=== PATIENT | female | born 1985 | race Caucasian/White ===

== ENCOUNTER 2018-09-25 12:38 | Emergency (ER) | payer BC, OTHER ==
[~2018-09-25] VITALS: Ht 170.2 cm; Wt 111.1 kg
--- OUTSIDE RECORDS SUMMARY | 2018-09-25 12:46 | XMS REPORT ---
Author Author HINA KAPOOR [facility] Address Unknown Care Team Providers Care Farm Management Teacher Name Role Phone HINA KAPOOR Unavailable PROBLEMS Unknown Problems ALLERGIES Substance Reaction Event Type Date Status Tylenol Unknown Drug Allergy Sep, Active Metformin HCl Unknown Drug Allergy Sep, Active Aspirin Unknown Drug Allergy Sep, Active ENCOUNTERS Encounter Location Date Diagnosis [facility] [id number] [place], [place] [id number] Sep, Dental examination Z01.20 IMMUNIZATIONS No Known Immunizations SOCIAL HISTORY Never Assessed REASON FOR VISIT darryl PLAN OF CARE Activity Details Follow Up prn Reason:Referred to [place]. VITAL SIGNS Blood pressure systolic 123 mmHg 2016-10-10 Blood pressure diastolic 57 mmHg 2016-10-10 MEDICATIONS No Known Medications RESULTS No Results PROCEDURES Procedure Date Ordered Result Body Site LTD ORAL EVALUATION - PROBLEM FOCUS October 10, 2016 INTRAORL-PERIAPICAL 1 FILM [id number] October 10, 2016 INSTRUCTIONS MEDICATIONS ADMINISTERED No Known Medications MEDICAL (GENERAL) HISTORY Type Description Date Medical History asthma Medical History kidney stones Medical History trigeminal neuralgia Surgical History tubal ligation
--- NOTE | 2018-09-25 13:11 | ED Abdominal Pain ---
General Chief Complaint: Abdominal/GI Problems Stated Complaint: SUPRAPUBIC/ABD/BACK PAIN Source of Information: Patient, Family, Other Exam Limitations: No Limitations History of Present Illness Date Seen by Provider: September 25, 2018 Time Seen by Provider: 13:00 Initial Comments The patient presents to ER by private conveyance with her significant other and mother and chief complaint of progressively worsening abdominal pain starting the suprapubic region and radiating up towards her epigastric region for the past 3 days. When the pain gets at its worst she gets nauseated but she has not vomited. She's also had loose green diarrhea for the past 3 days. She has no history of diverticulitis, ulcerative colitis or Crohn's. She's had her tubes tied area and she just got off her period on Sunday, 2 days ago and has seen some blood still in her urine. She has had kidney stones before but she says that all feel anything like this. She has frequent UTIs. No objective fevers but some subjective chills. She has not taken anything for the pain and rates it as a 6 or 7 out of 10 right now. She has a history of cholecystectomy, tubal ligation. No history of appendectomy or colonoscopy. She has a history of acid reflux. She has not taken any antacids. She endorses dysuria. No vaginal discharge Allergies and Home Medications Allergies Coded Allergies: acetaminophen (Verified Allergy, Unknown, 09/25/18) aspirin (Verified Allergy, Unknown, 09/25/18) metformin (Verified Allergy, Unknown, 09/25/18) Patient Home Medication List Home Medication List Reviewed: Yes Review of Systems Review of Systems Constitutional: No chills, No diaphoresis EENTM: No Blurred Vision, No Double Vision Respiratory: Denies Cough, Denies Shortness of Air Cardiovascular: Denies Chest Pain, Denies Edema Gastrointestinal: See HPI; Denies Abdomen Distended; Abdominal Pain; Denies Constipated; Diarrhea, Nausea; Denies Vomiting Genitourinary: Burning; Denies Discharge Musculoskeletal: No back pain, No joint pain Past Iqjqfok-Zuzhdk-Ifqhuk Hx Patient Social History Alcohol Use: Rarely Uses Recreational Drug Use: No Smoking Status: Current Everyday Smoker Type Used: Cigarettes (one half pack per day) Physical Exam Vital Signs Vital Signs - First Documented 09/25/18 12:50 Temp 97.6 Pulse 77 Resp 16 B/P (MAP) 148/91 (110) Pulse Ox 98 O2 Delivery Room Air Capillary Refill : Height/Weight/BMI Height: '" Weight: lbs. oz. kg; BMI Method: General Appearance: WD/WN, no apparent distress HEENT: PERRL/EOMI, normal ENT inspection, pharynx normal (oral mucosa is moist) Neck: full range of motion, normal inspection Respiratory: no respiratory distress, no accessory muscle use Cardiovascular: normal peripheral pulses, regular rate, rhythm, no edema Peripheral Pulses: 2+ Radial Pulses (R), 2+ Radial Pulses (L) Gastrointestinal: normal bowel sounds (active), soft, no organomegaly, rebound (McBurney's point), tenderness (suprapubic and epigastric with mild tenderness over McBurney's point), other (negative for Rovsing sign, psoas sign or other mesenteric signs.) Neurologic/Psychiatric: alert, normal mood/affect, oriented x 3 Skin: normal color, warm/dry Progress/Results/Core Measures Results/Orders Lab Results Laboratory Tests Test 09/25/18 12:49 09/25/18 13:20 Range/Units Urine Color DARK YELLOW Urine Clarity CLEAR Urine pH 5.5 5-9 Urine Specific [place] >=1.030 1.016-1.022 Urine Protein TRACE H NEGATIVE Urine Glucose (UA) NEGATIVE NEGATIVE Urine Ketones NEGATIVE NEGATIVE Urine Nitrite NEGATIVE NEGATIVE Urine Bilirubin NEGATIVE NEGATIVE Urine Urobilinogen 0.2 NORMAL MG/DL Urine Leukocyte Esterase 1+ H NEGATIVE Urine RBC (Auto) 3+ H NEGATIVE Urine RBC 5-10 H /HPF Urine WBC 5-10 H /HPF Urine Squamous Epithelial Cells 5-10 /HPF Urine Crystals NONE /LPF Urine Bacteria FEW H /HPF Urine Casts NONE /LPF Urine Mucus LARGE H /LPF Urine Culture Indicated YES Urine Test NEGATIVE NEGATIVE Urine Opiates Screen NEGATIVE NEGATIVE Urine Oxycodone Screen POSITIVE H NEGATIVE Urine Methadone Screen NEGATIVE NEGATIVE Urine Propoxyphene Screen NEGATIVE NEGATIVE Urine Barbiturates Screen NEGATIVE NEGATIVE Ur Tricyclic Antidepressants Screen NEGATIVE NEGATIVE Urine Phencyclidine Screen NEGATIVE NEGATIVE Urine Amphetamines Screen NEGATIVE NEGATIVE Urine Methamphetamines Screen NEGATIVE NEGATIVE Urine Benzodiazepines Screen NEGATIVE NEGATIVE Urine Cocaine Screen NEGATIVE NEGATIVE Urine Cannabinoids Screen POSITIVE H NEGATIVE White Blood Count 9.7 4.3-11.0 10^3/uL Red Blood Count 4.77 4.35-5.85 10^6/uL Hemoglobin 14.9 11.5-16.0 G/DL Hematocrit 44 35-52 % Mean Corpuscular Volume 92 80-99 FL Mean Corpuscular Hemoglobin 31 25-34 PG Mean Corpuscular Hemoglobin Concent 34 32-36 G/DL Red Cell Distribution Width 12.8 10.0-14.5 % Platelet Count 215 130-400 10^3/uL Mean Platelet Volume 10.9 H 7.4-10.4 FL Neutrophils (%) (Auto) 56 42-75 % Lymphocytes (%) (Auto) 35 12-44 % Monocytes (%) (Auto) 7 0-12 % Eosinophils (%) (Auto) 2 0-10 % Basophils (%) (Auto) 1 0-10 % Neutrophils # (Auto) 5.4 1.8-7.8 X 10^3 Lymphocytes # (Auto) 3.3 1.0-4.0 X 10^3 Monocytes # (Auto) 0.6 0.0-1.0 X 10^3 Eosinophils # (Auto) 0.2 0.0-0.3 10^3/uL Basophils # (Auto) 0.1 0.0-0.1 10^3/uL Sodium Level 142 135-145 MMOL/L Potassium Level 4.1 3.6-5.0 MMOL/L Chloride Level 103 98-107 MMOL/L Carbon Dioxide Level 28 21-32 MMOL/L Anion Gap 11 5-14 MMOL/L Blood Urea Nitrogen 9 7-18 MG/DL Creatinine 0.73 0.60-1.30 MG/DL Estimat Glomerular Filtration Rate > 60 BUN/Creatinine Ratio 12 Glucose Level 91 70-105 MG/DL Calcium Level 8.7 8.5-10.1 MG/DL Corrected Calcium 8.5 8.5-10.1 MG/DL Magnesium Level 1.9 1.8-2.4 MG/DL Total Bilirubin 0.5 0.1-1.0 MG/DL Aspartate Amino Transf (AST/SGOT) 13 5-34 U/L Alanine Aminotransferase (ALT/SGPT) 12 0-55 U/L Alkaline Phosphatase 67 40-136 U/L Total Protein 6.7 6.4-8.2 GM/DL Albumin 4.2 3.2-4.5 GM/DL Lipase 21 8-78 U/L My Orders Orders - DYLAN,JOHN J Ua Culture If Indicated (09/25/18 12:45) Hcg,Qualitative Urine (09/25/18 12:45) Cbc With Automated Diff (09/25/18 13:04) Comprehensive Metabolic Panel (09/25/18 13:04) Drug Screen Stat (Urine) (09/25/18 13:04) Lipase (09/25/18 13:04) Magnesium (09/25/18 13:04) Ed Iv/Invasive Line Start (09/25/18 13:04) Lidocaine 2% Viscous 15 Ml (Xylocaine Vi (09/25/18 13:15) Famotidine Tablet (Pepcid Tablet) (09/25/18 13:05) Antacid Suspension (Mylanta Suspension (09/25/18 13:15) Urine Culture (09/25/18 12:49) Ketorolac Injection (Toradol Injection) (09/25/18 14:15) Ct Abdomen/Pelvis Wo (09/25/18 14:12) Medications Given in ED Current Medications Medications Dose Ordered Sig/Marcia Route Start Time Stop Time Status Last Admin Dose Admin Al Hydrox/Mg Hydrox/Simethicone 30 ml ONCE ONCE PO 09/25/18 13:15 09/25/18 13:16 DC 09/25/18 13:23 30 ML Ketorolac Tromethamine 30 mg ONCE ONCE IVP 09/25/18 14:15 09/25/18 14:16 DC 09/25/18 14:20 30 MG Lidocaine HCl 15 ml ONCE ONCE PO 09/25/18 13:15 09/25/18 13:16 DC 09/25/18 13:23 15 ML Vital Signs/I&O 09/25/18 12:50 Temp 97.6 Pulse 77 Resp 16 B/P (MAP) 148/91 (110) Pulse Ox 98 O2 Delivery Room Air Progress Progress Note #1: Time: 13:10 Progress Note Urinalysis and blood work. Since she's having some epigastric discomfort without try GI cocktail see if it helps tease out what is causing all of her symptoms. UTI, atypical kidney stone presentation, appendicitis, colitis, PID are all potential differential diagnoses. She has declined anything for pain or nausea at this time. Progress Note #2: Time: 14:11 Progress Note Blood work looks fine. Urinalysis demonstrates what could be infection with some red blood cells which could either be from her recent menses or even possibly a kidney stone. We discussed doing a CT of the abdomen pelvis without contrast and she agrees to do this. We will give her some Rocephin and some Toradol for her discomfort. The GI cocktail did nothing for her symptoms. Diagnostic Imaging Diagonstic Imaging: CT (noncontrast) Plain Films/CT/US/NM/MRI: abdomen, pelvis Comments NAME: SONJA LU [facility] REC#: [id number] PT STATUS: REG ER : 1985 PHYSICIAN: JOHN RICHARDSON MD ADMIT DATE: 09/25/18/ER FS Draft Date of Exam:09/25/18 CT ABDOMEN/PELVIS WO PROCEDURE: CT abdomen and pelvis without contrast. TECHNIQUE: Multiple contiguous axial images were obtained through the abdomen and pelvis without the use of intravenous contrast. Auto Exposure Controls were utilized during the CT exam to meet ALARA standards for radiation dose reduction. INDICATION: Suprapubic and bilateral flank pain for two days as well as diarrhea. Patient has prior history of kidney stones. COMPARISON: No prior studies are available for comparison. FINDINGS: The lung bases are clear. The liver is unremarkable. The gallbladder is surgically absent. No biliary duct dilatation is seen. The pancreas and spleen are unremarkable. No adrenal mass is detected. There are bilateral renal calculi identified. There are two calculi identified in the renal pelvis on the right, largest 7 mm in size. A calculus in the lower pole left kidney measures 6 mm in size. No ureteral calculi or hydronephrosis is detected. Aorta is non-aneurysmal. No bladder calculi are detected. Uterus is unremarkable. Small and large bowel loops are unremarkable. There is no obstruction. There is no ascites. Bony structures show significant sclerosis of the sacroiliac joints bilaterally but much greater on the right consistent with sacroiliitis. IMPRESSION: 1. Bilateral nonobstructing renal calculi, largest located in the right renal pelvis. No definite ureteral calculi or hydronephrosis is seen. 2. Bilateral sacroiliitis. Dictated on workstation # [id number] Dict: 09/25/18 1441 Trans: 09/25/18 1454 [facility] [id number] Interpreted by: JOEY RUSSELL MD Electronically signed by: Reviewed: Reviewed by Me Departure Impression Primary Impression: UTI (urinary tract infection) Qualified Codes: N30.01 - Acute cystitis with hematuria Additional Impression: Viral colitis Disposition: HOME, SELF-CARE Condition: Stable Departure-Patient Inst. Decision time for Depature: 15:06 Referrals: JODIE ORTEGA MD (PCP/Family) Primary Care Physician Patient Instructions: Urinary Tract Infections in Adults Add. Discharge Instructions: You can use Pyridium or AZO for the burning pain sensation up to 3 days. It will turn your urine a dark orange color which is expected. You may also use Tylenol 1000 mg every 8 hours in addition to ibuprofen 800 mg every 8 hours. group social worker the Keflex and start it tomorrow morning one capsule twice a day. Drink lots of fluids. Caffeine is okay. If you're pain becomes more severe or you develop fever above 102.5, intractable nausea vomiting or other worrisome symptoms then I would encourage to return to the ER for further evaluation. You may use Imodium 2 tablets first followed by one tablet every 4 hours as necessary to control the loose watery stools. Probiotics one capsule twice a day with or without yogurt with active culture will be helpful also to control your loose stools. All discharge instructions reviewed with patient and/or family. Voiced understanding. Scripts Cephalexin (Cephalexin) 500 Mg Tablet 500 MG PO BID for 7 Days, #14 TAB 0 Refills Prov: JOHN RICHARDSON 09/25/18 JOHN RICHARDSON September 25, 2018 13:11
[2018-09-25] MEDS: LIDOCAINE 2% VISCOUS 15 ML UDC PO ONE (13:23)
[2018-09-25] MEDS: FAMOTIDINE 20 MG (PEPCID) TABLET PO STA (13:23)
[2018-09-25] MEDS: ANTACID SUSP 30 ML UDC (MYLANTA) PO ONE (13:23)
[2018-09-25 13:52] LABS: ALANINE AMINOTRANSFERASE 12 U/L (0-55); ALBUMIN 4.2 GM/DL (3.2-4.5); ALKALINE PHOSPHATASE 67 U/L (40-136); BILIRUBIN,TOTAL 0.5 MG/DL (0.1-1.0); BUN/CREATININE RATIO 12; CALCIUM 8.7 MG/DL (8.5-10.1); CARBON DIOXIDE 28 MMOL/L (21-32); CHLORIDE 103 MMOL/L (98-107); CREATININE SERUM 0.73 MG/DL (0.60-1.30); GFR ESTIMATED > 60; GLUCOSE 91 MG/DL (70-105); LIPASE 21 U/L (8-78); MAGNESIUM 1.9 MG/DL (1.8-2.4); POTASSIUM 4.1 MMOL/L (3.6-5.0); SODIUM 142 MMOL/L (135-145); TOTAL PROTEIN 6.7 GM/DL (6.4-8.2)
[2018-09-25 13:54] LABS: WHITE BLOOD COUNT 9.7 10^3/uL (4.3-11.0)
[2018-09-25 13:55] LABS: BASOPHILS # (AUTO) 0.1 10^3/uL (0.0-0.1); BASOPHILS % (AUTO) 1 % (0-10); EOSINOPHILS # (AUTO) 0.2 10^3/uL (0.0-0.3); EOSINOPHILS % (AUTO) 2 % (0-10); HEMATOCRIT 44 % (35-52); HEMOGLOBIN 14.9 G/DL (11.5-16.0); LYMPHOCYTES # (AUTO) 3.3 X 10^3 (1.0-4.0); LYMPHOCYTES % (AUTO) 35 % (12-44); MEAN CORPUSCULAR HEMOGLOBIN 31 PG (25-34); MEAN CORPUSCULAR HGB CONC 34 G/DL (32-36); MEAN CORPUSCULAR VOLUME 92 FL (80-99); MEAN PLATELET VOLUME 10.9 FL (7.4-10.4); MONOCYTES # (AUTO) 0.6 X 10^3 (0.0-1.0); MONOCYTES % (AUTO) 7 % (0-12); NEUTROPHILS # (AUTO) 5.4 X 10^3 (1.8-7.8); NEUTROPHILS % (AUTO) 56 % (42-75); PLATELET COUNT 215 10^3/uL (130-400); RED CELL DISTRIBUTION WIDTH 12.8 % (10.0-14.5)
[2018-09-25 13:57] LABS: AMPHETAMINE SCREEN, URINE NEGATIVE (NEGATIVE); BARBITURATE SCREEN URINE NEGATIVE (NEGATIVE); BENZODIAZEPINES SCREEN URINE NEGATIVE (NEGATIVE); CANNABINOID SCREEN, URINE POSITIVE (NEGATIVE); COCAINE SCREEN URINE NEGATIVE (NEGATIVE); METHADONE STAT NEGATIVE (NEGATIVE); METHAMPHETAMINE SCREEN URINE S NEGATIVE (NEGATIVE); OPIATE SCREEN URINE NEGATIVE (NEGATIVE); OXYCODONE STAT POSITIVE (NEGATIVE); PROPOXYPHENE STAT NEGATIVE (NEGATIVE); TRICYCLIC ANTIDEPRESSANTS SCRE NEGATIVE (NEGATIVE)
[2018-09-25 14:01] LABS: CLARITY,URINE CLEAR; COLOR,URINE DARK YELLOW
[2018-09-25 14:02] LABS: BACTERIA,URINE FEW /HPF; BILIRUBIN,URINE NEGATIVE (NEGATIVE); GLUCOSE, URINE (UA) NEGATIVE (NEGATIVE); KETONES,URINE NEGATIVE (NEGATIVE); LEUKOCYTE ESTERASE ,URINE 1+ (NEGATIVE); NITRITE,URINE NEGATIVE (NEGATIVE); PH,URINE 5.5 (5-9); PROTEIN,URINE TRACE (NEGATIVE); UROBILINOGEN,URINE 0.2 MG/DL (NORMAL)
[2018-09-25 14:03] LABS: HCG,QUALITATIVE URINE NEGATIVE (NEGATIVE)
[2018-09-25] MEDS: KETOROLAC 30 MG/ML VIAL IVP ONE (14:20)
--- NOTE | 2018-09-25 14:55 | Diagnostic Imaging Report ---
PROCEDURE: CT abdomen and pelvis without contrast. TECHNIQUE: Multiple contiguous axial images were obtained through the abdomen and pelvis without the use of intravenous contrast. Auto Exposure Controls were utilized during the CT exam to meet ALARA standards for radiation dose reduction. INDICATION: Suprapubic and bilateral flank pain for two days as well as diarrhea. Patient has prior history of kidney stones. COMPARISON: No prior studies are available for comparison. FINDINGS: The lung bases are clear. The liver is unremarkable. The gallbladder is surgically absent. No biliary duct dilatation is seen. The pancreas and spleen are unremarkable. No adrenal mass is detected. There are bilateral renal calculi identified. There are two calculi identified in the renal pelvis on the right, largest 7 mm in size. A calculus in the lower pole left kidney measures 6 mm in size. No ureteral calculi or hydronephrosis is detected. Aorta is non-aneurysmal. No bladder calculi are detected. Uterus is unremarkable. Small and large bowel loops are unremarkable. There is no obstruction. There is no ascites. Bony structures show significant sclerosis of the sacroiliac joints bilaterally but much greater on the right consistent with sacroiliitis. IMPRESSION: 1. Bilateral nonobstructing renal calculi, largest located in the right renal pelvis. No definite ureteral calculi or hydronephrosis is seen. 2. Bilateral sacroiliitis. Dictated by: Dictated on workstation # [id number]
[2018-09-25] MEDS ORDERED: CEPH500T PO (15:08)
[2018-09-25] MEDS: cefTRIAXone FOR IV USE 1,000 MG in WATER (STERILE) FOR INJECTION 10 ML IV ONE (15:20)
[2018-09-25 15:26] VITALS: BP 122/70
== END 2018-09-25 15:30 | disposition home or self-care (01) ==
LOC: ER FS 12:42
DX: N39.0 Urinary tract infection, site not specified (principal); A08.4 Viral intestinal infection, unspecified; F17.210 Nicotine dependence, cigarettes, uncomplicated; Z88.6 Allergy status to analgesic agent; Z88.8 Allergy status to other drugs, medicaments and biological substances; Z87.442 Personal history of urinary calculi
CPT/HCPCS: 36415; 74176; 80053; 80306; 81000; 83690; 83735; 84703; 85025; 87088; 96374; 96375

== ENCOUNTER 2018-11-27 13:11 | Emergency (ER) | payer BC ==
[~2018-11-27] VITALS: Ht 170.2 cm; Wt 106.6 kg
[~2018-11-27 13:11] MED LIST: CEPH500T PO
--- OUTSIDE RECORDS SUMMARY | 2018-11-27 13:16 | XMS REPORT | Continuity of Care Document ---
Author Organization Unknown Address Unknown Phone Unavailable Allergies Active Description Code Type Severity Reaction Onset Reported/Identified Relationship to Patient Clinical Status Yes acetaminophen [id number] Drug Allergy Unknown N/A 09/25/2018 Yes aspirin [id number] Drug Allergy Unknown N/A 09/25/2018 Yes metformin [id number] Drug Allergy Unknown N/A 09/25/2018 Medications There is no data. Problems Date Dx Coded Attending Type Code Diagnosis Diagnosed By 09/25/2018 JOHN RICHARDSON MD Ot A08.4 VIRAL INTESTINAL INFECTION, UNSPECIFIED 09/25/2018 JOHN RICHARDSON MD Ot F17.210 NICOTINE DEPENDENCE, CIGARETTES, UNCOMPL 09/25/2018 JOHN RICHARDSON MD Ot N39.0 URINARY TRACT INFECTION, SITE NOT SPECIF 09/25/2018 JOHN RICHARDSON MD Ot R10.30 LOWER ABDOMINAL PAIN, UNSPECIFIED 09/25/2018 JOHN RICHARDSON MD Ot Z87.442 PERSONAL HISTORY OF URINARY CALCULI 09/25/2018 JOHN RICHARDSON MD Ot Z88.6 ALLERGY STATUS TO ANALGESIC AGENT STATUS 09/25/2018 JOHN RICHARDSON MD Ot Z88.8 ALLERGY STATUS TO OTH DRUG/MEDS/BIOL SUB 09/28/2018 JOHN RICHARDSON MD Ot A08.4 VIRAL INTESTINAL INFECTION, UNSPECIFIED 09/28/2018 JOHN RICHARDSON MD Ot F17.210 NICOTINE DEPENDENCE, CIGARETTES, UNCOMPL 09/28/2018 JOHN RICHARDSON MD Ot N39.0 URINARY TRACT INFECTION, SITE NOT SPECIF 09/28/2018 JOHN RICHARDSON MD Ot R10.30 LOWER ABDOMINAL PAIN, UNSPECIFIED 09/28/2018 JOHN RICHARDSON MD Ot Z87.442 PERSONAL HISTORY OF URINARY CALCULI 09/28/2018 JOHN RICHARDSON MD Ot Z88.6 ALLERGY STATUS TO ANALGESIC AGENT STATUS 09/28/2018 JOHN RICHARDSON MD Ot Z88.8 ALLERGY STATUS TO OTH DRUG/MEDS/BIOL SUB Procedures There is no data. Results Test Result Range Urine drug screening test - 09/25/18 12:49 Urine phencyclidine detection by screening method NEGATIVE NEGATIVE Urine benzodiazepines detection by screening method NEGATIVE NEGATIVE Urine cocaine detection NEGATIVE NEGATIVE Urine amphetamines detection by screening method NEGATIVE NEGATIVE Urine methamphetamine detection by screening method NEGATIVE NEGATIVE Urine cannabinoids detection by screening method POSITIVE NEGATIVE Urine opiates detection by screening method NEGATIVE NEGATIVE Urine barbiturates detection NEGATIVE NEGATIVE Screening urine tricyclic antidepressants detection NEGATIVE NEGATIVE Urine methadone detection by screening method NEGATIVE NEGATIVE Urine oxycodone detection POSITIVE NEGATIVE Urine propoxyphene detection NEGATIVE NEGATIVE Complete urinalysis with reflex to culture - 09/25/18 12:49 Urine color determination DARK YELLOW NRG Urine clarity determination CLEAR NRG Urine pH measurement by test strip 5.5 5-9 Specific gravity of urine by test strip >= 1.016-1.022 Urine protein assay by test strip, semi-quantitative TRACE NEGATIVE Urine glucose detection by automated test strip NEGATIVE NEGATIVE Erythrocytes detection in urine sediment by light microscopy 3+ NEGATIVE Urine ketones detection by automated test strip NEGATIVE NEGATIVE Urine nitrite detection by test strip NEGATIVE NEGATIVE Urine total bilirubin detection by test strip NEGATIVE NEGATIVE Urine urobilinogen measurement by automated test strip (mass/volume) 0.2 mg/dL NORMAL Urine leukocyte esterase detection by dipstick 1+ NEGATIVE Automated urine sediment erythrocyte count by microscopy (number/high power field) [HPF] NRG Automated urine sediment leukocyte count by microscopy (number/high power field) [HPF] NRG Bacteria detection in urine sediment by light microscopy FEW NRG Squamous epithelial cells detection in urine sediment by light microscopy 5-10 NRG Crystals detection in urine sediment by light microscopy NONE NRG Casts detection in urine sediment by light microscopy NONE NRG Mucus detection in urine sediment by light microscopy LARGE NRG Complete urinalysis with reflex to culture YES NRG Urine beta human chorionic gonadotropin (hCG) measurement - 09/25/18 12:49 Urine beta human chorionic gonadotropin (hCG) measurement NEGATIVE NEGATIVE Bacterial urine culture - 09/25/18 12:49 Bacterial urine culture [id number] NRG COLONY COUNT . NRG FTX;REPORTABLE PRESENT NRG FREE TEXT ENTRY 2 CONTAMINATION WITH SKIN ANAI NRG FREE TEXT ENTRY 3 NO SUSCEPTIBILITY PERFORMED NRG Comprehensive metabolic panel - 09/25/18 13:20 Serum or plasma sodium measurement (moles/volume) 142 mmol/L 135-145 Serum or plasma potassium measurement (moles/volume) 4.1 mmol/L 3.6-5.0 Serum or plasma chloride measurement (moles/volume) 103 mmol/L 98-107 Carbon dioxide 28 mmol/L 21-32 Serum or plasma anion gap determination (moles/volume) 11 mmol/L 5-14 Serum or plasma urea nitrogen measurement (mass/volume) 9 mg/dL 7-18 Serum or plasma creatinine measurement (mass/volume) 0.73 mg/dL 0.60-1.30 Serum or plasma urea nitrogen/creatinine mass ratio 12 NRG Serum or plasma creatinine measurement with calculation of estimated glomerular filtration rate > NRG Serum or plasma glucose measurement (mass/volume) 91 mg/dL 70-105 Serum or plasma calcium measurement (mass/volume) 8.7 mg/dL 8.5-10.1 Serum or plasma total bilirubin measurement (mass/volume) 0.5 mg/dL 0.1-1.0 Serum or plasma alkaline phosphatase measurement (enzymatic activity/volume) 67 U/L 40-136 Serum or plasma aspartate aminotransferase measurement (enzymatic activity/volume) 13 U/L 5-34 Serum or plasma alanine aminotransferase measurement (enzymatic activity/volume) 12 U/L 0-55 Serum or plasma protein measurement (mass/volume) 6.7 g/dL 6.4-8.2 Serum or plasma albumin measurement (mass/volume) 4.2 g/dL 3.2-4.5 CALCIUM CORRECTED 8.5 mg/dL 8.5-10.1 Magnesium - 09/25/18 13:20 Magnesium 1.9 mg/dL 1.8-2.4 Lipase - 09/25/18 13:20 Lipase 21 U/L 8-78 Complete blood count (CBC) with automated white blood cell (WBC) differential - 09/25/18 13:20 Blood leukocytes automated count (number/volume) 9.7 10*3/uL 4.3-11.0 Blood erythrocytes automated count (number/volume) 4.77 10*6/uL 4.35-5.85 Venous blood hemoglobin measurement (mass/volume) 14.9 g/dL 11.5-16.0 Blood hematocrit (volume fraction) 44 % 35-52 Automated erythrocyte mean corpuscular volume 92 [foz_us] 80-99 Automated erythrocyte mean corpuscular hemoglobin (mass per erythrocyte) 31 pg 25-34 Automated erythrocyte mean corpuscular hemoglobin concentration measurement (mass/volume) 34 g/dL 32-36 Automated erythrocyte distribution width ratio 12.8 % 10.0- 14.5 Automated blood platelet count (count/volume) 215 10*3/uL 130-400 Automated blood platelet mean volume measurement 10.9 [foz_us] 7.4-10.4 Automated blood neutrophils/100 leukocytes 56 % 42-75 Automated blood lymphocytes/100 leukocytes 35 % 12-44 Blood monocytes/100 leukocytes 7 % 0-12 Automated blood eosinophils/100 leukocytes 2 % 0-10 Automated blood basophils/100 leukocytes 1 % 0-10 Blood neutrophils automated count (number/volume) 5.4 10*3 1.8-7.8 Blood lymphocytes automated count (number/volume) 3.3 10*3 1.0-4.0 Blood monocytes automated count (number/volume) 0.6 10*3 0.0- 1.0 Automated eosinophil count 0.2 10*3/uL 0.0-0.3 Automated blood basophil count (count/volume) 0.1 10*3/uL 0.0-0.1 Encounters ACCT No. Visit Date/Time Discharge Status Pt. Type Provider Facility Loc./Unit Complaint [id number] 09/25/2018 12:42:00 09/25/2018 15:30:00 DIS Emergency DYLAN MACHADO, JOHN [facility] ER FS SUPRAPUBIC/ABD/BACK PAIN
[2018-11-27] MEDS ORDERED: KETOROLAC 30 MG/ML VIAL IVP ONE (13:30)
[2018-11-27] MEDS ORDERED: NS IV 1000 ML 1,000 ML IV SCH (13:30)
--- NOTE | 2018-11-27 13:30 | ED GU-Female ---
General Chief Complaint: - Urinary Stated Complaint: HEMATURIA; SUPRAPUBIC & RT FLANK PAIN Source: patient Exam Limitations: no limitations History of Present Illness Date Seen by Provider: Nov 27, 2018 Time Seen by Provider: 13:15 Initial Comments She has a very pleasant 33-year-old female who presents for evaluation of right flank discomfort as well as right lower quadrant abdominal discomfort which started yesterday. She is also noticed some gross hematuria. She reports a history of kidney stones and states that this does feel similar. She also reports a history of endometriosis and states that that has sometimes felt similar to this. She is alert and oriented 4, calm, and appears to be in no distress at this time. She denies fevers or chills, pelvic pain/bleeding/discharge, chest pain or shortness of breath, diarrhea, vomiting, rectal bleeding, dizziness or syncope. She reports a past surgical history including cholecystectomy and tubal ligation. Timing/Duration: yesterday Severity/Quality: moderate Location: RLQ, right flank Radiation: none Activities at Onset: none Prior Genitourinary Problems: similar symptoms (with kidney stones in the past) Modifying Factors: Improves With Movement (makes the pain slightly worse) Associated Symptoms: other (hematuria) Allergies and Home Medications Allergies Coded Allergies: acetaminophen (Verified Allergy, Unknown, 09/25/18) aspirin (Verified Allergy, Unknown, 09/25/18) metformin (Verified Allergy, Unknown, 09/25/18) Home Medications Cephalexin 500 Mg Tablet, 500 MG PO BID Prescribed by: JOHN RICHARDSON on 09/25/18 1508 Patient Home Medication List Home Medication List Reviewed: Yes Review of Systems Review of Systems Constitutional: no symptoms reported EENTM: no symptoms reported Respiratory: no symptoms reported Cardiovascular: no symptoms reported Gastrointestinal: RLQ Genitourinary: flank pain (right) Musculoskeletal: no symptoms reported Skin: no symptoms reported Psychiatric/Neurological: No Symptoms Reported Endocrine: No Symptoms Reported Hematologic/Lymphatic: No Symptoms Reported All Other Systemes Reviewed Negative Unless Noted: Yes Past Wehsdim-Eietai-Ntgyup Hx Patient Social History Alcohol Use: Denies Use Recreational Drug Use: No Smoking Status: Current Everyday Smoker Type Used: Cigarettes 2nd Hand Smoke Exposure: Yes Recent Hopitalizations: No Seasonal Allergies Seasonal Allergies: No Past Medical History Surgeries: Yes Gallbladder, Tubal Ligation Respiratory: Yes Asthma Cardiac: No Neurological: No 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 oz. 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, no motor/sensory deficits, alert, normal mood/affect, oriented x 3 Skin: normal color, warm/dry Lymphatic: no adenopathy Progress/Results/Core Measures Suspected Sepsis SIRS Temperature: Pulse: Respiratory Rate: Laboratory Tests 11/27/18 13:25: White Blood Count 11.1H Blood Pressure / Mean: Laboratory Tests 11/27/18 13:25: Creatinine 0.75, Platelet Count 231, Total Bilirubin 0.5 Results/Orders Lab Results Laboratory Tests Test 11/27/18 13:14 11/27/18 13:25 Range/Units Urine Color YELLOW Urine Clarity CLOUDY Urine pH 5.5 5-9 Urine Specific [place] >=1.030 1.016-1.022 Urine Protein TRACE H NEGATIVE Urine Glucose (UA) NEGATIVE NEGATIVE Urine Ketones NEGATIVE NEGATIVE Urine Nitrite NEGATIVE NEGATIVE Urine Bilirubin NEGATIVE NEGATIVE Urine Urobilinogen 0.2 NORMAL MG/DL Urine Leukocyte Esterase TRACE H NEGATIVE Urine RBC (Auto) 2+ H NEGATIVE Urine RBC 2-5 H /HPF Urine WBC 25-50 H /HPF Urine Squamous Epithelial Cells 25-50 H /HPF Urine Crystals NONE /LPF Urine Bacteria MODERATE H /HPF Urine Casts NONE /LPF Urine Mucus MODERATE H /LPF Urine Culture Indicated YES Urine Test NEGATIVE NEGATIVE White Blood Count 11.1 H 4.3-11.0 10^3/uL Red Blood Count 5.06 4.35-5.85 10^6/uL Hemoglobin 15.9 11.5-16.0 G/DL Hematocrit 47 35-52 % Mean Corpuscular Volume 93 80-99 FL Mean Corpuscular Hemoglobin 31 25-34 PG Mean Corpuscular Hemoglobin Concent 34 32-36 G/DL Red Cell Distribution Width 13.1 10.0-14.5 % Platelet Count 231 130-400 10^3/uL Mean Platelet Volume 11.1 H 7.4-10.4 FL Neutrophils (%) (Auto) 63 42-75 % Lymphocytes (%) (Auto) 29 12-44 % Monocytes (%) (Auto) 5 0-12 % Eosinophils (%) (Auto) 2 0-10 % Basophils (%) (Auto) 1 0-10 % Neutrophils # (Auto) 7.0 1.8-7.8 X 10^3 Lymphocytes # (Auto) 3.2 1.0-4.0 X 10^3 Monocytes # (Auto) 0.5 0.0-1.0 X 10^3 Eosinophils # (Auto) 0.2 0.0-0.3 10^3/uL Basophils # (Auto) 0.1 0.0-0.1 10^3/uL Sodium Level 141 135-145 MMOL/L Potassium Level 3.8 3.6-5.0 MMOL/L Chloride Level 100 98-107 MMOL/L Carbon Dioxide Level 24 21-32 MMOL/L Anion Gap 17 H 5-14 MMOL/L Blood Urea Nitrogen 9 7-18 MG/DL Creatinine 0.75 0.60-1.30 MG/DL Estimat Glomerular Filtration Rate > 60 BUN/Creatinine Ratio 12 Glucose Level 150 H 70-105 MG/DL Calcium Level 9.4 8.5-10.1 MG/DL Corrected Calcium 9.1 8.5-10.1 MG/DL Total Bilirubin 0.5 0.1-1.0 MG/DL Aspartate Amino Transf (AST/SGOT) 17 5-34 U/L Alanine Aminotransferase (ALT/SGPT) 19 0-55 U/L Alkaline Phosphatase 74 40-136 U/L Total Protein 7.5 6.4-8.2 GM/DL Albumin 4.4 3.2-4.5 GM/DL Amylase Level 39 25-125 U/L Lipase 28 8-78 U/L My Orders Orders - KEVIN,HECTOR B DO Comprehensive Metabolic Panel (11/27/18 13:17) Lipase (11/27/18 13:17) Amylase (11/27/18 13:17) Ua Culture If Indicated (11/27/18 13:17) Ed Iv/Invasive Line Start (11/27/18 13:17) Cbc With Automated Diff (11/27/18 13:17) Ct Abdomen/Pelvis Wo (11/27/18 13:17) Hcg,Qualitative Urine (11/27/18 13:17) Nothing By Mouth (11/27/18 Dinner) Ketorolac Injection (Toradol Injection) (11/27/18 13:30) Ns Iv 1000 Ml (Sodium Chloride 0.9%) (11/27/18 13:30) Urine Culture (11/27/18 13:14) Ceftriaxone For Iv Use (Rocephin For I (11/27/18 14:30) Medications Given in ED Current Medications Medications Dose Ordered Sig/Marcia Route Start Time Stop Time Status Last Admin Dose Admin Ketorolac Tromethamine 30 mg ONCE ONCE IVP 11/27/18 13:30 11/27/18 13:31 DC 11/27/18 13:33 30 MG Vital Signs/I&O 11/27/18 13:15 Temp 97.7 Pulse 90 Resp 18 B/P (MAP) 131/76 (94) Pulse Ox 97 Capillary Refill : Progress Note : Progress Note @1455 - Patient updated on lab and imaging results. She appears much more comfortable at this time. Advised the patient to follow up with her PCP in the next 2-3 days and to return to the emergency department for new or worsening symptoms. She expresses verbal understanding and agreement with the plan. She is stable for discharge at this time. Diagnostic Imaging Diagonstic Imaging: CT Comments [facility] [place], [place] NAME: SONJA LU [facility] REC#: [id number] PT STATUS: REG ER : 1985 PHYSICIAN: HECTOR BROWN DO ADMIT DATE: 11/27/18/ER FS Draft Date of Exam:11/27/18 CT ABDOMEN/PELVIS WO PROCEDURE: CT abdomen and pelvis without contrast. TECHNIQUE: Multiple contiguous axial images were obtained through the abdomen and pelvis without the use of intravenous contrast. Auto Exposure Controls were utilized during the CT exam to meet ALARA standards for radiation dose reduction. INDICATION: Bilateral flank pain. COMPARISON: CT abdomen and pelvis from 09/25/2018. FINDINGS: Evaluation of the abdominal viscera is mildly limited without contrast. Lower chest: The lung bases are clear. No pericardial or pleural effusion. Peritoneum: No free intraperitoneal air or fluid. Liver and biliary system: Unenhanced liver is normal. Cholecystectomy. No pathologic biliary duct dilatation. Spleen and Pancreas: Spleen is normal. Unenhanced pancreas is grossly normal. Adrenals: Normal. tract: Multiple bilateral renal stones are in stable position compared to prior examination. This includes two adjacent stones within the right renal pelvis, the largest measuring 8 mm. The largest left renal stone is in the lower pole and measures approximately 7 mm. No ureteral stones or obstructive uropathy on either side. Urinary bladder is decompressed, limiting assessment. The uterus and ovaries are normal in appearance. Bilateral tubal ligations have been performed. GI tract: Stomach is filled with food debris and there is no discrete wall thickening. No bowel obstruction. No pericolonic inflammatory changes. Normal appendix. Vasculature and Lymph nodes: Normal caliber aorta. No abdominal or pelvic lymphadenopathy. Musculoskeletal: No concerning osseous lesion. Stable sclerosis on the iliac side of both SI joints, compatible with osteitis condensans ilii. IMPRESSION: 1. Bilateral nonobstructing renal stones are unchanged since 09/25/2018 exam. The largest stones again measure approximately 7-8 mm in size. 2. No ureteral stones or obstructive uropathy. Dictated on workstation # [id number] Dict: 11/27/18 1424 Trans: 11/27/18 1435 [id number] Interpreted by: DANIELLE RENNER MD Electronically signed by: Departure Impression Primary Impression: Right flank pain Additional Impressions: Acute UTI Bilateral kidney stones Disposition: 01 HOME, SELF-CARE Condition: Stable Departure-Patient Inst. Decision time for Depature: 15:00 Referrals: JODIE ORTEGA MD (PCP/Family) Primary Care Physician Patient Instructions: Kidney Stones in Adults, Urinary Tract Infections in Adults Add. Discharge Instructions: Follow-up with your doctor in the next 2-3 days. Take the prescribed medications as directed. Return to the ER immediately for new or worsening symptoms. Drink plenty of water at home and stay well-hydrated. Scripts Ketorolac Tromethamine (Ketorolac Tromethamine) 10 Mg Tablet 10 MG PO TID for Pain for 7 Days, #20 TAB Prov: HECTOR BROWN DO 11/27/18 Cephalexin (Cephalexin) 500 Mg Tablet 500 MG PO TID for 10 Days, #30 TAB 0 Refills Prov: HECTOR BROWN DO 11/27/18 Work/School Note: Work Release Form Date Seen in the Emergency Department: Nov 27, 2018 Return to Work: Nov 28, 2018 Restrictions: No Restrictions HECTOR RBOWN DO Nov 27, 2018 13:30
[2018-11-27 14:05] LABS: HEMATOCRIT 47 % (35-52); HEMOGLOBIN 15.9 G/DL (11.5-16.0); MEAN CORPUSCULAR HEMOGLOBIN 31 PG (25-34); MEAN CORPUSCULAR HGB CONC 34 G/DL (32-36); MEAN CORPUSCULAR VOLUME 93 FL (80-99); PLATELET COUNT 231 10^3/uL (130-400); RED CELL DISTRIBUTION WIDTH 13.1 % (10.0-14.5); WHITE BLOOD COUNT 11.1 10^3/uL (4.3-11.0)
[2018-11-27 14:06] LABS: BASOPHILS # (AUTO) 0.1 10^3/uL (0.0-0.1); BASOPHILS % (AUTO) 1 % (0-10); EOSINOPHILS # (AUTO) 0.2 10^3/uL (0.0-0.3); EOSINOPHILS % (AUTO) 2 % (0-10); LYMPHOCYTES # (AUTO) 3.2 X 10^3 (1.0-4.0); LYMPHOCYTES % (AUTO) 29 % (12-44); MEAN PLATELET VOLUME 11.1 FL (7.4-10.4); MONOCYTES # (AUTO) 0.5 X 10^3 (0.0-1.0); MONOCYTES % (AUTO) 5 % (0-12); NEUTROPHILS % (AUTO) 63 % (42-75)
[2018-11-27 14:25] LABS: CLARITY,URINE CLOUDY; COLOR,URINE YELLOW; PH,URINE 5.5 (5-9); PROTEIN,URINE TRACE (NEGATIVE)
[2018-11-27 14:26] LABS: BILIRUBIN,URINE NEGATIVE (NEGATIVE); GLUCOSE, URINE (UA) NEGATIVE (NEGATIVE); KETONES,URINE NEGATIVE (NEGATIVE); LEUKOCYTE ESTERASE ,URINE TRACE (NEGATIVE); NITRITE,URINE NEGATIVE (NEGATIVE); UROBILINOGEN,URINE 0.2 MG/DL (NORMAL)
[2018-11-27 14:27] LABS: BACTERIA,URINE MODERATE /HPF; SQUAMOUS EPITHELIAL CELL,UR 25-50 /HPF; WBC,URINE 25-50 /HPF
[2018-11-27] MEDS ORDERED: cefTRIAXone FOR IV USE 1,000 MG in WATER (STERILE) FOR INJECTION 10 ML IV ONE (14:30)
[2018-11-27 14:32] LABS: POTASSIUM 3.8 MMOL/L (3.6-5.0); SODIUM 141 MMOL/L (135-145)
[2018-11-27 14:33] LABS: ALKALINE PHOSPHATASE 74 U/L (40-136); BILIRUBIN,TOTAL 0.5 MG/DL (0.1-1.0); BUN/CREATININE RATIO 12; CALCIUM 9.4 MG/DL (8.5-10.1); CARBON DIOXIDE 24 MMOL/L (21-32); CHLORIDE 100 MMOL/L (98-107); CREATININE SERUM 0.75 MG/DL (0.60-1.30); GFR ESTIMATED > 60; GLUCOSE 150 MG/DL (70-105)
[2018-11-27 14:34] LABS: ALANINE AMINOTRANSFERASE 19 U/L (0-55); ALBUMIN 4.4 GM/DL (3.2-4.5); AMYLASE 39 U/L (25-125); LIPASE 28 U/L (8-78); TOTAL PROTEIN 7.5 GM/DL (6.4-8.2)
--- NOTE | 2018-11-27 14:36 | Diagnostic Imaging Report ---
PROCEDURE: CT abdomen and pelvis without contrast. TECHNIQUE: Multiple contiguous axial images were obtained through the abdomen and pelvis without the use of intravenous contrast. Auto Exposure Controls were utilized during the CT exam to meet ALARA standards for radiation dose reduction. INDICATION: Bilateral flank pain. COMPARISON: CT abdomen and pelvis from 09/25/2018. FINDINGS: Evaluation of the abdominal viscera is mildly limited without contrast. Lower chest: The lung bases are clear. No pericardial or pleural effusion. Peritoneum: No free intraperitoneal air or fluid. Liver and biliary system: Unenhanced liver is normal. Cholecystectomy. No pathologic biliary duct dilatation. Spleen and Pancreas: Spleen is normal. Unenhanced pancreas is grossly normal. Adrenals: Normal. tract: Multiple bilateral renal stones are in stable position compared to prior examination. This includes two adjacent stones within the right renal pelvis, the largest measuring 8 mm. The largest left renal stone is in the lower pole and measures approximately 7 mm. No ureteral stones or obstructive uropathy on either side. Urinary bladder is decompressed, limiting assessment. The uterus and ovaries are normal in appearance. Bilateral tubal ligations have been performed. GI tract: Stomach is filled with food debris and there is no discrete wall thickening. No bowel obstruction. No pericolonic inflammatory changes. Normal appendix. Vasculature and Lymph nodes: Normal caliber aorta. No abdominal or pelvic lymphadenopathy. Musculoskeletal: No concerning osseous lesion. Stable sclerosis on the iliac side of both SI joints, compatible with osteitis condensans ilii. IMPRESSION: 1. Bilateral nonobstructing renal stones are unchanged since 09/25/2018 exam. The largest stones again measure approximately 7-8 mm in size. 2. No ureteral stones or obstructive uropathy. Dictated by: Dictated on workstation # [id number]
[2018-11-27] MEDS ORDERED: CEPH500T PO (15:04)
[2018-11-27] MEDS ORDERED: KETO10TA PO (15:04)
[2018-11-27 15:14] VITALS: BP 133/76
== END 2018-11-27 15:13 | disposition home or self-care (01) ==
LOC: EDUNIT# 13:11 → ER FS 13:13
DX: N20.0 Calculus of kidney (principal); N39.0 Urinary tract infection, site not specified; J45.909 Unspecified asthma, uncomplicated; F32.9 Major depressive disorder, single episode, unspecified; F17.210 Nicotine dependence, cigarettes, uncomplicated; Z90.49 Acquired absence of other specified parts of digestive tract; Z98.51 Tubal ligation status; Z88.6 Allergy status to analgesic agent; Z88.8 Allergy status to other drugs, medicaments and biological substances
CPT/HCPCS: 36415; 74176; 80053; 81000; 82150; 83690; 84703; 85025; 87088; 96361; 96374; 96375

== ENCOUNTER 2019-01-08 18:32 | Emergency (ER) | payer BC ==
[~2019-01-08] VITALS: Ht 170.2 cm; Wt 106.8 kg
[~2019-01-08 18:32] MED LIST changes: +KETO10TA PO
[2019-01-08] MEDS ORDERED: morphine INJ 10 MG/ML 1ML (SYR OR VIAL) IVP STA (18:41)
[2019-01-08] MEDS ORDERED: ONDANSETRON 4 MG/2 ML (SDV) Z0FRAN IVP ONE ×2 (18:45→20:45)
[2019-01-08] MEDS ORDERED: NS IV 1000 ML 1,000 ML IV SCH ×2 (18:45→20:15)
--- NOTE | 2019-01-08 18:55 | ED Back Pain ---
General Stated Complaint: VOMITING, PAIN Source of Information: Patient Exam Limitations: No Limitations History of Present Illness Date Seen by Provider: Jan 08, 2019 Time Seen by Provider: 18:35 Initial Comments The patient is a obese 33-year-old female who presents for evaluation of right flank pain. She states that she's been dealing with kidney stones for the last 18 years and that she was recently diagnosed with 1 about a month ago. Today she had a lithotripsy performed at [facility] in [place] and while at the hospital states she had a lot of pain. She states that she was having gross hematuria and that her pain and nausea were severe. She states that she was discharged in that state. She drove here from that hospital and upon arrival is extremely dramatic and screaming. She states that today was her first ever lithotripsy. Timing/Duration: 1-3 Hours Severity: Severe Pain/Injury Location: Back Method of Injury: Other (kidney stone) Modifying Factors: Improves With Movement (makes it worse) Allergies and Home Medications Allergies Coded Allergies: acetaminophen (Verified Allergy, Unknown, 09/25/18) aspirin (Verified Allergy, Unknown, 09/25/18) metformin (Verified Allergy, Unknown, 09/25/18) Home Medications Cephalexin 500 Mg Tablet, 500 MG PO BID Prescribed by: JOHN RICHARDSON on 09/25/18 1508 Cephalexin 500 Mg Tablet, 500 MG PO TID Prescribed by: HECTOR BROWN on 11/27/18 1504 Ketorolac Tromethamine 10 Mg Tablet, 10 MG PO TID Prescribed by: HECTOR BROWN on 11/27/18 1504 Patient Home Medication List Home Medication List Reviewed: Yes Review of Systems Constitutional: no symptoms reported EENTM: no symptoms reported Respiratory: no symptoms reported Cardiovascular: no symptoms reported Gastrointestinal: no symptoms reported Genitourinary: hematuria Musculoskeletal: back pain (right flank pain) Skin: no symptoms reported Psychiatric/Neurological: No Symptoms Reported All Other Systems Reviewed Negative Unless Noted: Yes Past Oomsdgs-Oyaixy-Mchafd Hx Past Med/Social Hx: Reviewed Nursing Past Med/Soc Hx Patient Social History Type Used: Cigarettes 2nd Hand Smoke Exposure: Yes Recent Foreign Travel: No Contact w/Someone Who Travel: No Recent Hopitalizations: No Seasonal Allergies Seasonal Allergies: No Past Medical History Surgeries: Yes Gallbladder, Tubal Ligation Respiratory: Yes Asthma Cardiac: No Neurological: No 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 oz. 106.044356xk; BMI Method:Stated General Appearance: WD/WN, Obese, Other (screaming and writhing around, appears uncomfortable) HEENT: PERRL/EOMI, Normal ENT Inspection Neck: Full Range of Motion, Non Tender, Supple Cardiovascular: Regular Rate, Rhythm, No Edema Respiratory: Chest Non Tender, Lungs Clear, Normal Breath Sounds, No Respiratory Distress Gastrointestinal: Normal Bowel Sounds, Non Tender, Soft Extremity: Normal Capillary Refill, Normal Inspection, No Calf Tenderness Neurologic/Psychiatric: Alert, Oriented x3, No Motor/Sensory Deficits, Normal Mood/Affect Skin: Normal Color, Warm/Dry Progress/Results/Core Measures Results/Orders Lab Results Laboratory Tests Test 01/08/19 18:50 01/08/19 19:20 Range/Units White Blood Count 15.7 H 4.3-11.0 10^3/uL Red Blood Count 4.97 4.35-5.85 10^6/uL Hemoglobin 15.5 11.5-16.0 G/DL Hematocrit 46 35-52 % Mean Corpuscular Volume 93 80-99 FL Mean Corpuscular Hemoglobin 31 25-34 PG Mean Corpuscular Hemoglobin Concent 34 32-36 G/DL Red Cell Distribution Width 13.0 10.0-14.5 % Platelet Count 217 130-400 10^3/uL Mean Platelet Volume 10.8 H 7.4-10.4 FL Neutrophils (%) (Auto) 89 H 42-75 % Lymphocytes (%) (Auto) 7 L 12-44 % Monocytes (%) (Auto) 3 0-12 % Eosinophils (%) (Auto) 0 0-10 % Basophils (%) (Auto) 1 0-10 % Neutrophils # (Auto) 14.0 H 1.8-7.8 X 10^3 Lymphocytes # (Auto) 1.2 1.0-4.0 X 10^3 Monocytes # (Auto) 0.5 0.0-1.0 X 10^3 Eosinophils # (Auto) 0.0 0.0-0.3 10^3/uL Basophils # (Auto) 0.1 0.0-0.1 10^3/uL Neutrophils % (Manual) 73 % Lymphocytes % (Manual) 8 % Monocytes % (Manual) 3 % Band Neutrophils 14 % Atypical Lymphocytes 2 % Blood Morphology Comment NORMAL Sodium Level 142 135-145 MMOL/L Potassium Level 4.6 3.6-5.0 MMOL/L Chloride Level 108 H 98-107 MMOL/L Carbon Dioxide Level 21 21-32 MMOL/L Anion Gap 13 5-14 MMOL/L Blood Urea Nitrogen 11 7-18 MG/DL Creatinine 0.77 0.60-1.30 MG/DL Estimat Glomerular Filtration Rate > 60 BUN/Creatinine Ratio 14 Glucose Level 137 H 70-105 MG/DL Calcium Level 9.1 8.5-10.1 MG/DL Corrected Calcium 8.9 8.5-10.1 MG/DL Total Bilirubin 0.5 0.1-1.0 MG/DL Aspartate Amino Transf (AST/SGOT) 25 5-34 U/L Alanine Aminotransferase (ALT/SGPT) 23 0-55 U/L Alkaline Phosphatase 68 40-136 U/L Total Protein 7.3 6.4-8.2 GM/DL Albumin 4.3 3.2-4.5 GM/DL Lipase 26 8-78 U/L Serum Test, Qualitative NEGATIVE NEGATIVE Urine Color RED H Urine Clarity TURBID H Urine pH 6.0 5-9 Urine Specific [place] >1.030 1.016-1.022 Urine Protein 2+ H NEGATIVE Urine Glucose (UA) NEGATIVE NEGATIVE Urine Ketones 1+ H NEGATIVE Urine Nitrite NEGATIVE NEGATIVE Urine Bilirubin 1+ H NEGATIVE Urine Urobilinogen 0.2 NORMAL MG/DL Urine Leukocyte Esterase NEGATIVE NEGATIVE Urine RBC (Auto) 3+ H NEGATIVE Urine RBC TNTC H /HPF Urine WBC 5-10 H /HPF Urine Squamous Epithelial Cells 5-10 /HPF Urine Crystals NONE /LPF Urine Bacteria FEW H /HPF Urine Casts NONE /LPF Urine Mucus MODERATE H /LPF Urine Culture Indicated YES My Orders Orders - HECTOR BROWN DO Comprehensive Metabolic Panel (01/08/19 18:41) Lipase (9/11/19 18:41) Ua Culture If Indicated (01/08/19 18:41) Hcg,Qualitative Serum (01/08/19 18:41) Ed Iv/Invasive Line Start (01/08/19 18:41) Cbc With Automated Diff (01/08/19 18:41) Ct Abdomen/Pelvis Wo (01/08/19 18:41) Morphine Injection (Morphine Injection (01/08/19 18:41) Ondansetron Injection (Zofran Injectio (01/08/19 18:45) Ns Iv 1000 Ml (Sodium Chloride 0.9%) (01/08/19 18:45) Manual Differential (01/08/19 18:50) Urine Culture (01/08/19 19:20) Ns Iv 1000 Ml (Sodium Chloride 0.9%) (01/08/19 20:15) Hydromorphone Injection (Dilaudid Inject (01/08/19 20:30) Ondansetron Injection (Zofran Injectio (01/08/19 20:45) Medications Given in ED Current Medications Medications Dose Ordered Sig/Marcia Route Start Time Stop Time Status Last Admin Dose Admin Hydromorphone HCl 1 mg ONCE ONCE IV 01/08/19 20:30 01/08/19 20:31 DC 01/08/19 20:29 1 MG Ondansetron HCl 4 mg ONCE ONCE IVP 01/08/19 18:45 01/08/19 18:46 DC 01/08/19 19:01 4 MG Ondansetron HCl 4 mg ONCE ONCE IVP 01/08/19 20:45 01/08/19 20:46 DC 01/08/19 20:41 4 MG Vital Signs/I&O 01/08/19 18:34 Temp 36.3 Pulse 53 Resp 22 B/P (MAP) 125/62 (83) Pulse Ox 97 O2 Delivery Room Air Progress Progress Note : Progress Note @2135 - Pt updated on lab and imaging results. The patient appears much more co mfortable. She is being given additional IV fluids at this time. No indication of an obstructing stone on imaging. Advised follow-up with her urologist the next 1-2 days and to return to the emergency Department immediately for new or worsening symptoms. She expresses verbal understanding and agreement with the plan and is stable for discharge home at this time. Departure Impression Primary Impression: Kidney stone on right side Additional Impression: Nausea & vomiting Disposition: 01 HOME, SELF-CARE Condition: Stable Departure-Patient Inst. Referrals: JODIE ORTEGA MD (PCP/Family) Primary Care Physician Patient Instructions: Laser Lithotripsy for Kidney Stones, Kidney Stones in Adults Add. Discharge Instructions: Take the prescribed medicine instructed. Return to the ER immediately for new or worsening symptoms. Follow-up with your urologist or PCP in the next 1-2 days. HECTOR BROWN DO Jan 08, 2019 18:55
[2019-01-08 19:20] LABS: HEMATOCRIT 46 % (35-52); HEMOGLOBIN 15.5 G/DL (11.5-16.0); MEAN CORPUSCULAR HEMOGLOBIN 31 PG (25-34); MEAN CORPUSCULAR HGB CONC 34 G/DL (32-36); MEAN CORPUSCULAR VOLUME 93 FL (80-99); MEAN PLATELET VOLUME 10.8 FL (7.4-10.4); PLATELET COUNT 217 10^3/uL (130-400); WHITE BLOOD COUNT 15.7 10^3/uL (4.3-11.0)
[2019-01-08 19:21] LABS: BASOPHILS # (AUTO) 0.1 10^3/uL (0.0-0.1); BASOPHILS % (AUTO) 1 % (0-10); EOSINOPHILS % (AUTO) 0 % (0-10); LYMPHOCYTES # (AUTO) 1.2 X 10^3 (1.0-4.0); LYMPHOCYTES % (AUTO) 7 % (12-44); MONOCYTES # (AUTO) 0.5 X 10^3 (0.0-1.0); MONOCYTES % (AUTO) 3 % (0-12); NEUTROPHILS % (AUTO) 89 % (42-75)
--- NOTE | 2019-01-08 19:29 | Diagnostic Imaging Report ---
PROCEDURE: CT abdomen and pelvis without contrast. TECHNIQUE: Multiple contiguous axial images were obtained through the abdomen and pelvis without the use of intravenous contrast. Auto Exposure Controls were utilized during the CT exam to meet ALARA standards for radiation dose reduction. INDICATION: Flank pain. Status post lithotripsy. COMPARISON: CT abdomen and pelvis from 11/27/2018. FINDINGS: Evaluation of the abdominal viscera is mildly limited without contrast. Lower chest: The lung bases are clear. No pericardial or pleural effusion. Peritoneum: No free intraperitoneal air or fluid. Liver and biliary system: Unenhanced liver is normal. Cholecystectomy. No pathologic biliary duct dilatation. Spleen and Pancreas: Spleen is normal. Unenhanced pancreas is grossly normal. Adrenals: Normal. tract: The previously noted calculi in the right renal pelvis have been fragmented status post lithotripsy. There are now numerous tiny 2-3 mm calculi in the dependent aspect of the right renal pelvis. In the lower pole of the right kidney at the corticomedullary junction, there is a stable 6 mm calculus. Unchanged 4 mm calculus in the lower pole of the left kidney. There are a few 2-3 mm calculi in the proximal right ureter and within the distal right ureter at the UVJ. Mild dilatation of the right ureter is present; however, there is no significant hydronephrosis. No left hydronephrosis or hydroureter. Uterus and ovaries are normal in appearance. GI tract: Small sliding-type hiatal hernia is unchanged. No bowel obstruction. No pericolonic inflammatory changes. Normal appendix. Vasculature and Lymph nodes: Normal caliber aorta. No abdominal or pelvic lymphadenopathy. Musculoskeletal: No concerning osseous lesion. IMPRESSION: 1. Interval fragmentation of the renal calculi within the right renal pelvis, and there are now numerous small calculi within the right renal pelvis, proximal right ureter, and distal right ureter. No significant hydronephrosis is present. 2. Additional nonobstructing bilateral renal calculi are stable. Dictated by: Dictated on workstation # [id number]
--- NOTE | 2019-01-08 19:32 | NUR ---
PT. REPORTED SHE IS IN A LOT OF PAIN AND HER FAMILY CAME TO THE DESK REQUESTING HELP GETTING HER OUT OF THE WHEELCHAIR AND BACK TO BED. THIS RN AND THE TWO OTHER STAFF MEMBERS WERE GOING TO HELP HER GET IN BED AND SHE REFUSED STATING SHE WANTED TO STAY IN THE WHEELCHAIR.
[2019-01-08 19:47] LABS: ATYPICAL LYMPHOCYTES 2 %; BAND NEUTROPHILS 14 %; LYMPHOCYTES % (MANUAL) 8 %; MONOCYTES % (MANUAL) 3 %; NEUTROPHILS % (MANUAL) 73 %; RBC MORPH NORMAL
[2019-01-08 19:48] LABS: BUN/CREATININE RATIO 14; CARBON DIOXIDE 21 MMOL/L (21-32); CHLORIDE 108 MMOL/L (98-107); CREATININE SERUM 0.77 MG/DL (0.60-1.30); GFR ESTIMATED > 60; POTASSIUM 4.6 MMOL/L (3.6-5.0); SODIUM 142 MMOL/L (135-145)
[2019-01-08 19:49] LABS: ALANINE AMINOTRANSFERASE 23 U/L (0-55); ALBUMIN 4.3 GM/DL (3.2-4.5); ALKALINE PHOSPHATASE 68 U/L (40-136); BILIRUBIN,TOTAL 0.5 MG/DL (0.1-1.0); CALCIUM 9.1 MG/DL (8.5-10.1); GLUCOSE 137 MG/DL (70-105); LIPASE 26 U/L (8-78); TOTAL PROTEIN 7.3 GM/DL (6.4-8.2)
[2019-01-08 19:50] LABS: CLARITY,URINE TURBID; COLOR,URINE RED
[2019-01-08 19:51] LABS: BACTERIA,URINE FEW /HPF; GLUCOSE, URINE (UA) NEGATIVE (NEGATIVE); KETONES,URINE 1+ (NEGATIVE); LEUKOCYTE ESTERASE ,URINE NEGATIVE (NEGATIVE); NITRITE,URINE NEGATIVE (NEGATIVE); PROTEIN,URINE 2+ (NEGATIVE); RBC,URINE TNTC /HPF; UROBILINOGEN,URINE 0.2 MG/DL (NORMAL)
[2019-01-08 19:53] LABS: BILIRUBIN,URINE 1+ (NEGATIVE)
[2019-01-08] MEDS ORDERED: HYDROmorphone 2 MG/ML VIAL (DILAUDID) IV ONE (20:30)
[2019-01-08] MEDS ORDERED: RX-ONDANSETRON 4 MG ODT (ZOFRAN) PPK #4 PO STA (21:30)
[2019-01-08] MEDS ORDERED: RX-OXYCODONE/APAP 5-325 MG #4 TAB PK PO PRN (21:30)
[2019-01-08 21:34] VITALS: BP 125/62
== END 2019-01-08 21:38 | disposition home or self-care (01) ==
LOC: EDUNIT# 18:32 → ER FS 18:34
DX: N20.0 Calculus of kidney (principal); R11.2 Nausea with vomiting, unspecified; J45.909 Unspecified asthma, uncomplicated; F32.9 Major depressive disorder, single episode, unspecified; Z88.5 Allergy status to narcotic agent; Z88.6 Allergy status to analgesic agent; Z88.8 Allergy status to other drugs, medicaments and biological substances; Z77.22 Contact with and (suspected) exposure to environmental tobacco smoke (acute) (chronic); Z98.51 Tubal ligation status
CPT/HCPCS: 36415; 74176; 80053; 81000; 83690; 84703; 85007; 85027; 87088; 96361; 96374; 96375; 96376

== ENCOUNTER 2020-07-16 02:36 | Emergency (ER) | payer SELFPAY ==
[~2020-07-16] VITALS: Ht 170.2 cm; Wt 109.8 kg
[~2020-07-16 02:36] MED LIST changes: +ACHD5005 PO; +TMSL.4C PO
[2020-07-16] MEDS ORDERED: ONDANSETRON 4 MG/2 ML (SDV) Z0FRAN IVP STA (02:46)
[2020-07-16] MEDS ORDERED: NS IV 1000 ML 1,000 ML IV STA (02:46)
[2020-07-16] MEDS ORDERED: RX-ALBUTEROL INHALER (VENTOLIN HFA) 18 GM IH PRN (03:00)
--- NOTE | 2020-07-16 03:02 | ED General ---
General Chief Complaint: Cough/Cold/Flu Symptoms Stated Complaint: COUGH,FEVER,DIZZY,VOMITING Nursing Triage Note: PT AMBULATE TO ROOM FS05 WITH C/O COUGH X3 DAYS AND N/V/D STARTING TODAY. Nursing Sepsis Screen: No Definite Risk Source of Information: Patient History of Present Illness Date Seen by Provider: Jul 16, 2020 Time Seen by Provider: 02:37 Initial Comments 34-year-old female presenting with 3 days of deep nonproductive cough, s ubjective fever and chills. She started having nausea with vomiting and diarrhea tonight. She states that she has had more than 6 episodes of vomiting and over 3 episodes of diarrhea. She is currently on her menstrual cycle. She has a history of asthma and does use an inhaler but the last time was around 8 PM. She has been having a lot of wheezing with her cough. The cough and shortness of breath with wheezing has been over 3 days. She does work at [employer] and has exposure to multiple people. Her [id number] was recently around her this week as well and was having upper respiratory symptoms. Timing/Duration: 3-4 Days Severity: Moderate Associated Systoms: Chest Pain (Lower rib and chest wall pain from coughing), Cough; No Diaphoresis; Fever/Chills (Subjective fever and chills), Malaise, Nausea/Vomiting (started tonight while working at [employer]); No Seizure; Shortness of Air (with her asthma, cough and wheezing) Allergies and Home Medications Allergies Coded Allergies: acetaminophen (Verified Allergy, Unknown, 09/25/18) aspirin (Verified Allergy, Unknown, 09/25/18) metformin (Verified Allergy, Unknown, 09/25/18) Home Medications Azithromycin 250 Mg Tablet, 250 MG PO DAILY Prescribed by: AYDEN HERNÁNDEZ on 07/16/20411 Benzonatate 100 Mg Capsule, 200 MG PO Q6H PRN for COUGH Prescribed by: AYDEN HERNÁNDEZ on 07/16/20411 Prednisone 20 Mg Tab, 40 MG PO DAILY Prescribed by: AYDEN HERNÁNDEZ on 07/16/20411 Patient Home Medication List Home Medication List Reviewed: Yes Review of Systems Review of Systems Constitutional: chills; No diaphoresis; dizziness, fever (subjective), malaise EENTM: nose congestion (mild); No epistaxis Respiratory: see HPI, cough, dyspnea on exertion; No hemoptysis; short of breath; No stridor; wheezing Cardiovascular: see HPI, chest pain (bilateral lower rib/chest wall pain from coughing); No palpitations, No syncope Gastrointestinal: see HPI, diarrhea, nausea, vomiting Genitourinary: No dysuria : No LMP: Jul 14, 2020 Musculoskeletal: no symptoms reported Skin: No rash Psychiatric/Neurological: Denies Numbness, Denies Paresthesia Hematologic/Lymphatic: No Symptoms Reported Immunological/Allergic: no symptoms reported Past Hufwbey-Csmtxz-Xyimnm Hx Past Med/Social Hx: Reviewed Nursing Past Med/Soc Hx Patient Social History Alcohol Use: Denies Use Smoking Status: Current Everyday Smoker Type Used: Cigarettes 2nd Hand Smoke Exposure: Yes Recent Infectious Disease Expo: No Recent Hopitalizations: No Seasonal Allergies Seasonal Allergies: No Past Medical History Surgeries: Yes Gallbladder, Tubal Ligation Respiratory: Yes Asthma Cardiac: No Neurological: No Female 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 oz. 106.326727fq; 37.00 BMI Method:Stated General Appearance: WD/WN, Mild Distress (increased coughing), Obese HEENT: PERRL/EOMI Neck: Full Range of Motion, Non Tender, Supple Respiratory: Accessory Muscle Use, Decreased Breath Sounds; No Rales, No Rhonci , No Stridor; Wheezing (diffuse inspiratory and expiratory), Other (tender to palpation of chest wall, especially on ribs lower down on sides, bilaterally) Cardiovascular: Regular Rate, Rhythm, No Murmur, Normal Peripheral Pulses Gastrointestinal: Normal Bowel Sounds, No Pulsatile Mass, Non Tender, Soft Rectal: Deferred Extremity: Normal Capillary Refill, No Pedal Edema Neurologic/Psychiatric: Alert, Oriented x3, 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 Norm as Tested Skin: Normal Color, Warm/Dry; No Rash Focused Exam Lactate Level 07/16/20 03:00: Lactic Acid Level 1.08 Lactic Acid Level Laboratory Tests Test 07/16/20 03:00 Lactic Acid Level 1.08 MMOL/L (0.50-2.00) Progress/Results/Core Measures Suspected Sepsis Recent Fever Within 48 Hours: No Infection Criteria Present: None New/Unexplained Altered Menta: No Sepsis Screen: No Definite Risk SIRS Temperature: Pulse: 89 Respiratory Rate: 18 Laboratory Tests 07/16/20 03:00: White Blood Count 12.7H Blood Pressure 138 /67 Mean: 90 07/16/20 03:00: Lactic Acid Level 1.08 Laboratory Tests 07/16/20 03:00: Creatinine 0.82, INR Comment 1.0, Platelet Count 224, Total Bilirubin 0.3 Results/Orders Lab Results Laboratory Tests Test 07/16/20 03:00 Range/Units White Blood Count 12.7 H 4.3-11.0 10^3/uL Red Blood Count 4.98 4.35-5.85 10^6/uL Hemoglobin 15.5 11.5-16.0 G/DL Hematocrit 45 35-52 % Mean Corpuscular Volume 90 80-99 FL Mean Corpuscular Hemoglobin 31 25-34 PG Mean Corpuscular Hemoglobin Concent 35 32-36 G/DL Red Cell Distribution Width 13.1 10.0-14.5 % Platelet Count 224 130-400 10^3/uL Mean Platelet Volume 10.7 H 7.4-10.4 FL Immature Granulocyte % (Auto) 0 % Neutrophils (%) (Auto) 82 H 42-75 % Lymphocytes (%) (Auto) 10 L 12-44 % Monocytes (%) (Auto) 6 0-12 % Eosinophils (%) (Auto) 1 0-10 % Basophils (%) (Auto) 0 0-10 % Neutrophils # (Auto) 10.4 H 1.8-7.8 X 10^3 Lymphocytes # (Auto) 1.3 1.0-4.0 X 10^3 Monocytes # (Auto) 0.7 0.0-1.0 X 10^3 Eosinophils # (Auto) 0.1 0.0-0.3 10^3/uL Basophils # (Auto) 0.1 0.0-0.1 10^3/uL Immature Granulocyte # (Auto) 0.0 0.0-0.1 10^3/uL Prothrombin Time 13.0 12.2-14.7 SEC INR Comment 1.0 0.8-1.4 Activated Partial Thromboplast Time 25 24-35 SEC Sodium Level 139 135-145 MMOL/L Potassium Level 3.8 3.6-5.0 MMOL/L Chloride Level 105 98-107 MMOL/L Carbon Dioxide Level 26 21-32 MMOL/L Anion Gap 8 5-14 MMOL/L Blood Urea Nitrogen 13 7-18 MG/DL Creatinine 0.82 0.60-1.30 MG/DL Estimat Glomerular Filtration Rate > 60 BUN/Creatinine Ratio 16 Glucose Level 118 H 70-105 MG/DL Lactic Acid Level 1.08 0.50-2.00 MMOL/L Calcium Level 8.7 8.5-10.1 MG/DL Corrected Calcium 8.5 8.5-10.1 MG/DL Total Bilirubin 0.3 0.1-1.0 MG/DL Aspartate Amino Transf (AST/SGOT) 13 5-34 U/L Alanine Aminotransferase (ALT/SGPT) 13 0-55 U/L Alkaline Phosphatase 74 40-136 U/L Troponin I < 0.30 <0.30 NG/ML C-Reactive Protein 0.64 H <0.50 MG/DL Total Protein 7.2 6.4-8.2 GM/DL Albumin 4.2 3.2-4.5 GM/DL My Orders Orders - AYDEN HERNÁNDEZ MD Monitor-Rhythm Ecg Trace Only (07/16/20 02:44) Cbc With Automated Diff (07/16/20 02:44) Comprehensive Metabolic Panel (07/16/20 02:44) Crp Fs (07/16/20 02:44) Troponin I Fs (07/16/20 02:44) Protime With Inr (07/16/20 02:44) Partial Thromboplastin Time (07/16/20 02:44) Ekg Tracing (07/16/20 02:44) Ed Iv/Invasive Line Start (07/16/20 02:44) Blood Culture (07/16/20 02:44) Lactic Acid Analyzer (07/16/20 02:44) Ns Iv 1000 Ml (Sodium Chloride 0.9%) (07/16/20 02:46) Ondansetron Injection (Zofran Injectio (07/16/20 02:46) Chest 1 View Ap/Pa Only (07/16/20 02:46) Sputum Culture (07/16/20 02:46) Rx-Albuterol Inhaler (Rx-Ventolin Hfa) (07/16/20 03:00) Dexamethasone Injection (Decadron Inje (07/16/20 02:54) Coronavirus Sars-Cov-2 So 2018 (07/16/20 03:58) Ceftriaxone For Iv Use (Rocephin For I (07/16/20 03:59) Azithromycin Tablet (Zithromax Tablet) (07/16/20 03:59) Benzonatate Capsule (Tessalon Perles) (07/16/20 03:59) Rx-Ondansetron Po (Rx-Zofran Po) (07/16/20 04:00) Medications Given in ED Current Medications Medications Dose Ordered Sig/Marcia Route Start Time Stop Time Status Last Admin Dose Admin Albuterol Sulfate 2 PUFFS IH Q4HR PRN Wheezing RTQ4HR PRN IH 07/16/20 03:00 07/16/20 04:43 DC 07/16/20 03:10 0.018 GM Ondansetron HCl 4 mg Q6H PRN PO 07/16/20 04:00 07/16/20 04:43 DC 07/16/20 04:21 4 MG Vital Signs/I&O 07/16/20 07/16/20 07/16/20 02:44 02:48 04:40 Temp 36.7 Pulse 89 79 Resp 18 18 B/P (MAP) 138/67 (90) 106/64 Pulse Ox 95 O2 Delivery Room Air Room Air Room Air Capillary Refill : Less Than 3 Seconds Blood Pressure Mean: 90 Progress Note #1: Progress Note Check labs, blood cultures, lactic acid, 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 ECG with CXR. surveillance system monitor shows sinus rhythm with rate in 90s without ectopy. Try IVF for hydration 1 L NS, Zofran 4 mg IV for n/v, Dexamethasone 10 mg IV for cough and wheezing, Albuterol inhaler with spacer for wheezing and shortness of breath. Pt in isolation with negative pressure ventilation. PPE for potential COVID infection worn during exam and history. Differential diagnosis includes pneumonia, COVID-19 infection, asthma exacerb ation, gastroenteritis, viral infection Progress Note #2: Progress Note CBC with mild elevation of WBC count and left shift. Negative Lactic acid. Mild elevation of CRP. On my review of her CXR she has perihilar increased lung markings and possible RLL infiltrate. Will send a COVID swab on patient. Treat with steroid burst, Z pack, Albuterol inhaler with spacer and Mucinex for loosening cough and congestion. Treat for COPD and possible developing pneumonia RLL. ECG Initial ECG Impression Date: Jul 16, 2020 Initial ECG Impression Time: 02:52 Initial ECG Rate: 92 Initial ECG Rhythm: Normal Sinus Initial ECG Comparisson: No Previous ECG Available Comment Sinus rhythm with a heart rate of 92 bpm. DC interval 153 ms. QT interval 335 ms with a QTc interval 415 ms. Left anterior fascicular block. There is no acute ST elevation. There is no prior tracing immediately available for comparison. Diagnostic Imaging Diagonstic Imaging: Xray Plain Films/CT/US/NM/MRI: chest Comments On my review of her 1 view chest x-ray she has increased perihilar lung markings and possible right lower lobe infiltrate. She has no effusion or cardiomegaly. Reviewed: Reviewed by Me Departure Impression Primary Impression: Upper respiratory infection with cough and congestion Additional Impression: Nausea vomiting and diarrhea Disposition: 01 HOME, SELF-CARE Condition: Stable Departure-Patient Inst. Decision time for Depature: 04:05 Referrals: JODIE ORTEGA MD (PCP/Family) Primary Care Physician Patient Instructions: Coronavirus Disease 2019 (COVID-19) Overview, Coronavirus Disease 2019 (COVID-19) Tests, Cough, Adult ED, Diarrhea, Adult ED, How to Use Your Metered Dose Inhaler (Adults), How to Use a Spacer, Nausea and Vomiting, Adult ED, Upper Respiratory Infection ED Add. Discharge Instructions: Try to quit smoking cigarettes. Use Mucinex over the counter to help loosen cough and congestion. Make sure to drink plenty of water with this when you take it or it will not work as well. Use inhaler with spacer 2 puffs every 4 hours as needed for wheezing/cough. Steroid and antibiotic should help cover you for bronchitis or possible early pneumonia. Stay home and quarantine until you have negative Covid results and are feeling better without fever, chills, nausea, vomiting, diarrhea. All discharge instructions reviewed with patient and/or family. Voiced understanding. Scripts Benzonatate (TESSALON PERLES) 100 Mg Capsule 200 MG PO Q6H PRN for COUGH for 5 Days, #40 CAP 0 Refills Prov: AYDEN HERNÁNDEZ MD 07/16/20 Prednisone (Prednisone) 20 Mg Tab 40 MG PO DAILY for 5 Days, #10 TAB 0 Refills Prov: AYDEN HERNÁNDEZ MD 07/16/20 Azithromycin (Azithromycin) 250 Mg Tablet 250 MG PO DAILY for 4 for 4 Days, #4 TAB 0 Refills Prov: AYDEN HERNÁNDEZ MD 07/16/20 Work/School Note: Work Release Form Date Seen in the Emergency Department: Jul 16, 2020 Return to Work: Jul 19, 2020 Restrictions: Need Release from Doctor Other Restrictions Listed Below: Off until has negative COVID test and symptoms resolved. AYDEN HERNÁNDEZ MD Jul 16, 2020 03:02
[2020-07-16 03:27] LABS: HEMATOCRIT 45 % (35-52); HEMOGLOBIN 15.5 G/DL (11.5-16.0); MEAN CORPUSCULAR HEMOGLOBIN 31 PG (25-34); MEAN CORPUSCULAR HGB CONC 35 G/DL (32-36); MEAN CORPUSCULAR VOLUME 90 FL (80-99); WHITE BLOOD COUNT 12.7 10^3/uL (4.3-11.0)
[2020-07-16 03:28] LABS: BASOPHILS # (AUTO) 0.1 10^3/uL (0.0-0.1); BASOPHILS % (AUTO) 0 % (0-10); EOSINOPHILS # (AUTO) 0.1 10^3/uL (0.0-0.3); EOSINOPHILS % (AUTO) 1 % (0-10); LYMPHOCYTES # (AUTO) 1.3 X 10^3 (1.0-4.0); LYMPHOCYTES % (AUTO) 10 % (12-44); MEAN PLATELET VOLUME 10.7 FL (7.4-10.4); MONOCYTES # (AUTO) 0.7 X 10^3 (0.0-1.0); MONOCYTES % (AUTO) 6 % (0-12); NEUTROPHILS # (AUTO) 10.4 X 10^3 (1.8-7.8); NEUTROPHILS % (AUTO) 82 % (42-75); PLATELET COUNT 224 10^3/uL (130-400)
[2020-07-16 03:37] LABS: ALANINE AMINOTRANSFERASE 13 U/L (0-55); ALKALINE PHOSPHATASE 74 U/L (40-136); BILIRUBIN,TOTAL 0.3 MG/DL (0.1-1.0); BUN/CREATININE RATIO 16; CALCIUM 8.7 MG/DL (8.5-10.1); CARBON DIOXIDE 26 MMOL/L (21-32); CHLORIDE 105 MMOL/L (98-107); CREATININE SERUM 0.82 MG/DL (0.60-1.30); GFR ESTIMATED > 60; GLUCOSE 118 MG/DL (70-105); POTASSIUM 3.8 MMOL/L (3.6-5.0); SODIUM 139 MMOL/L (135-145); TOTAL PROTEIN 7.2 GM/DL (6.4-8.2)
[2020-07-16 03:38] LABS: ALBUMIN 4.2 GM/DL (3.2-4.5)
[2020-07-16] MEDS ORDERED: BENZONATATE 100 MG (TESSALON) CAPSULE PO STA (03:59)
[2020-07-16] MEDS ORDERED: cefTRIAXone FOR IV USE 1,000 MG in WATER (STERILE) FOR INJECTION 10 ML IV STA (03:59)
[2020-07-16] MEDS ORDERED: AZITHROMYCIN 250 MG TAB (ZITHROMAX) PO STA (03:59)
[2020-07-16] MEDS ORDERED: RX-ONDANSETRON 4 MG ODT (ZOFRAN) PPK #4 PO PRN (04:00)
[2020-07-16] MEDS ORDERED: BENZ100C18 PO (04:12)
[2020-07-16] MEDS ORDERED: PRD20T PO (04:12)
[2020-07-16] MEDS ORDERED: AZIT250T12 PO (04:12)
[2020-07-16 04:40] VITALS: BP 106/64
--- NOTE | 2020-07-16 05:43 | Diagnostic Imaging Report ---
INDICATION: Cough x2 days Portable chest 2:50 AM Heart size and pulmonary vascularity are normal. Lungs are clear. There are no effusions or pneumothoraces. IMPRESSION: Negative chest Dictated by: Dictated on workstation # [id number]
== END 2020-07-16 04:40 | disposition home or self-care (01) ==
LOC: EDUNIT# 02:36 → ER FS 02:38
DX: J06.9 Acute upper respiratory infection, unspecified (principal); R05 Cough; R09.81 Nasal congestion; R11.2 Nausea with vomiting, unspecified; R19.7 Diarrhea, unspecified; I10 Essential (primary) hypertension; E66.9 Obesity, unspecified; J45.909 Unspecified asthma, uncomplicated; F17.210 Nicotine dependence, cigarettes, uncomplicated; Z68.37 Body mass index [BMI] 37.0-37.9, adult; Z88.6 Allergy status to analgesic agent; Z88.8 Allergy status to other drugs, medicaments and biological substances; Z20.822 Contact with and (suspected) exposure to COVID-19; Z79.52 Long term (current) use of systemic steroids
CPT/HCPCS: 36415; 71045; 80053; 83605; 84484; 85025; 85610; 85730; 86141; 87040; 93005; 93041; 99284; U0002; 87635

== ENCOUNTER 2020-07-22 09:47 | Emergency (ER) | payer SELFPAY ==
[~2020-07-22] VITALS: Ht 170 cm; Wt 108.0 kg
[~2020-07-22 09:47] MED LIST changes: +AZIT250T12 PO; +BENZ100C18 PO; +PRD20T PO
[2020-07-22] MEDS ORDERED: PROMETHAZINE/ CODEINE SYRUP 5 ML UDC PO ONE (10:15)
--- NOTE | 2020-07-22 10:19 | ED General ---
General Chief Complaint: Respiratory Problems Stated Complaint: LOW O2 History of Present Illness Date Seen by Provider: Jul 22, 2020 Time Seen by Provider: 10:14 Initial Comments Ms. Cortes is a 34-year-old female who presents to the [place] ED after outpatient f/u appointment for decreased O2 saturation. She was recently diagnosed with RLL pneumonia [address] Hernández and was given Mucinex, prednisone pack, azithromycin, and Tessalon perles. The patient states she has been constantly having chest tightness, shortness of air, diarrhea, vomiting, unproductive cough, wheezing, dizziness, and fever since her initial diagnosis. She states the Tessalon perles have not been helping her cough. She is not producing any sputum at this time, Mucinex is not loosening the chest tightness or congestion. She also admits to blurred vision and a headache from coughing. Patient states the recent CXR at last visit showed "infection in my lungs and a ball in my chest". Flu and COVID negative today. She states she recently had blood in her urine, but says she recently completed her menstrual cycle and attributes the blood to that. Timing/Duration: Constant Severity: Mild (CONSTANTIN BOSWELL,) Associated Systoms: Cough, Nausea/Vomiting, Shortness of Air (PORTER POP MD) Allergies and Home Medications Allergies Coded Allergies: acetaminophen (Verified Allergy, Unknown, 09/25/18) aspirin (Verified Allergy, Unknown, 09/25/18) metformin (Verified Allergy, Unknown, 09/25/18) Home Medications Azithromycin 250 Mg Tablet, 250 MG PO DAILY Prescribed by: AYDEN HERNÁNDEZ on 07/16/20411 Benzonatate 100 Mg Capsule, 200 MG PO Q6H PRN for COUGH Prescribed by: AYDEN HERNÁNDEZ on 07/16/20411 Prednisone 20 Mg Tab, 40 MG PO DAILY Prescribed by: AYDEN HERNÁNDEZ on 07/16/20411 Patient Home Medication List Home Medication List Reviewed: Yes (PORTER POP MD) Review of Systems Review of Systems Constitutional: chills, fever EENTM: blurred vision Respiratory: cough, short of breath Cardiovascular: chest pain Gastrointestinal: diarrhea, vomiting Genitourinary: No dysuria, No hematuria Musculoskeletal: No joint pain, No muscle pain Skin: No dryness, No rash Psychiatric/Neurological: Headache Hematologic/Lymphatic: No Symptoms Reported Immunological/Allergic: no symptoms reported (CONSTANTIN BOSWELL,) All Other Systems Reviewed Negative Unless Noted: Yes (PORTER POP MD) Past Ewymwxz-Ewxgfe-Ydczrv Hx Past Med/Social Hx: Reviewed Nursing Past Med/Soc Hx (PORTER POP MD) Patient Social History Type Used: Cigarettes 2nd Hand Smoke Exposure: Yes Recent Hopitalizations: No Alcohol Use?: No (CONSTANTIN BOSWELL,) Seasonal Allergies Seasonal Allergies: No (CONSTANTIN BOSWELL,) Past Medical History Surgeries: Yes Gallbladder, Tubal Ligation Respiratory: Yes Asthma Cardiac: No Neurological: No Female Reproductive Disorders: Endometriosis [employer]ER History: Tubal Ligation Genitourinary: Yes Kidney Infection, Kidney Stones Gastrointestinal: No Musculoskeletal: No Endocrine: No HEENT: Yes (trigeminal neuralgia) Cancer: No Psychosocial: Yes Depression Integumentary: No (CONSTANTIN BOSWELL) Family Medical History Reviewed Nursing Family Hx (PORTER POP MD) Cancer, Diabetes (CONSTANTIN BOSWELL) Physical Exam-Suspected Sepsis Physical Exam Vital Signs Vital Signs - First Documented 07/22/20 10:00 Temp 37.0 Pulse 79 Resp 18 B/P (MAP) 145/98 (114) Pulse Ox 95 O2 Delivery Room Air (PORTER POP MD) Vital Signs Capillary Refill : (CONSTANTIN BOSWELL,) Height, Weight, BMI Height: 5'7.00" Weight: 235lbs. oz. 106.788763hg; 37.00 BMI Method:Stated General Appearance: WD/WN, Mild Distress HEENT: PERRL/EOMI, Moist Mucous Membranes Neck: Non Tender, Supple Respiratory: No Accessory Muscle Use, Wheezing Cardiovascular: Regular Rate, Rhythm, No Murmur Gastrointestinal: Normal Bowel Sounds; No Tenderness Extremity: Normal Capillary Refill, No Pedal Edema Neurologic/Psychiatric: Alert, Oriented x3, No Motor/Sensory Deficits Skin: normal color, warm/dry Lymphatic: No Adenopathy (CONSTANTIN BOSWELL,) General Appearance: WD/WN, Mild Distress Respiratory: No Accessory Muscle Use, Wheezing, Other (Transmitted upper respiratory sounds) Cardiovascular: Regular Rate, Rhythm, No Murmur Gastrointestinal: Non Tender, Soft Back: Normal Inspection, No CVA Tenderness, No Vertebral Tenderness Extremity: Normal Range of Motion, Non Tender Neurologic/Psychiatric: Alert, Oriented x3 (PORTER POP MD) Focused Exam Lactate Level 07/22/20 10:10: Lactic Acid Level 1.14 (PORTER POP MD) Lactic Acid Level Laboratory Tests Test 07/22/20 10:10 Lactic Acid Level 1.14 MMOL/L (0.50-2.00) (PORTER POP MD) Progress/Results/Core Measures Suspected Sepsis Recent Fever Within 48 Hours: Yes Infection Criteria Present: Documented Infection New/Unexplained Altered Menta: No Within 3hrs of presentation: Blood cultures prior to ABX's, Lactate level SIRS Temperature: 37 Pulse: 63 Respiratory Rate: 18 Laboratory Tests 07/22/20 10:10: Blood Pressure 145/98 Mean: 111 07/22/20 10:10: Laboratory Tests 07/22/20 10:10: Laboratory Tests 07/22/20 10:10: (CONSTANTIN BOSWELL,) Results/Orders Lab Results Laboratory Tests Test 07/22/20 10:10 07/22/20 10:55 Range/Units White Blood Count 10.2 4.3-11.0 10^3/uL Red Blood Count 5.28 4.35-5.85 10^6/uL Hemoglobin 16.2 H 11.5-16.0 G/DL Hematocrit 48 35-52 % Mean Corpuscular Volume 90 80-99 FL Mean Corpuscular Hemoglobin 31 25-34 PG Mean Corpuscular Hemoglobin Concent 34 32-36 G/DL Red Cell Distribution Width 13.2 10.0-14.5 % Platelet Count 265 130-400 10^3/uL Mean Platelet Volume 10.7 H 7.4-10.4 FL Immature Granulocyte % (Auto) 0 % Neutrophils (%) (Auto) 53 42-75 % Lymphocytes (%) (Auto) 35 12-44 % Monocytes (%) (Auto) 8 0-12 % Eosinophils (%) (Auto) 3 0-10 % Basophils (%) (Auto) 1 0-10 % Neutrophils # (Auto) 5.5 1.8-7.8 X 10^3 Lymphocytes # (Auto) 3.6 1.0-4.0 X 10^3 Monocytes # (Auto) 0.8 0.0-1.0 X 10^3 Eosinophils # (Auto) 0.3 0.0-0.3 10^3/uL Basophils # (Auto) 0.1 0.0-0.1 10^3/uL Immature Granulocyte # (Auto) 0.0 0.0-0.1 10^3/uL Prothrombin Time 13.1 12.2-14.7 SEC INR Comment 1.0 0.8-1.4 Activated Partial Thromboplast Time 25 24-35 SEC Sodium Level 143 135-145 MMOL/L Potassium Level 4.4 3.6-5.0 MMOL/L Chloride Level 108 H 98-107 MMOL/L Carbon Dioxide Level 26 21-32 MMOL/L Anion Gap 9 5-14 MMOL/L Blood Urea Nitrogen 11 7-18 MG/DL Creatinine 0.75 0.60-1.30 MG/DL Estimat Glomerular Filtration Rate > 60 BUN/Creatinine Ratio 15 Glucose Level 99 70-105 MG/DL Lactic Acid Level 1.14 0.50-2.00 MMOL/L Calcium Level 9.1 8.5-10.1 MG/DL Corrected Calcium 8.9 8.5-10.1 MG/DL Total Bilirubin 0.4 0.1-1.0 MG/DL Aspartate Amino Transf (AST/SGOT) 20 5-34 U/L Alanine Aminotransferase (ALT/SGPT) 25 0-55 U/L Alkaline Phosphatase 72 40-136 U/L C-Reactive Protein 0.27 <0.50 MG/DL Total Protein 7.0 6.4-8.2 GM/DL Albumin 4.3 3.2-4.5 GM/DL Urine Color DARK YELLOW Urine Clarity SL CLOUDY Urine pH 5.5 5-9 Urine Specific [place] >=1.030 1.016-1.022 Urine Protein NEGATIVE NEGATIVE Urine Glucose (UA) NEGATIVE NEGATIVE Urine Ketones NEGATIVE NEGATIVE Urine Nitrite NEGATIVE NEGATIVE Urine Bilirubin NEGATIVE NEGATIVE Urine Urobilinogen 0.2 < = 1.0 MG/DL Urine Leukocyte Esterase NEGATIVE NEGATIVE Urine RBC (Auto) TRACE H NEGATIVE Urine RBC 0-2 /HPF Urine WBC 2-5 /HPF Urine Squamous Epithelial Cells 10-25 H /HPF Urine Crystals NONE /LPF Urine Bacteria TRACE /HPF Urine Casts NONE /LPF Urine Mucus MODERATE H /LPF Urine Culture Indicated CULTURE PENDING (PORTER POP MD) My Orders Orders - PORTER POP MD Cbc With Automated Diff (07/22/20 10:08) Comprehensive Metabolic Panel (07/22/20 10:08) Blood Culture (07/22/20 10:08) Sputum Culture (07/22/20 10:08) Urinalysis (07/22/20 10:08) Urine Culture (07/22/20 10:08) Protime With Inr (07/22/20 10:08) Partial Thromboplastin Time (07/22/20 10:08) Ed Iv/Invasive Line Start (07/22/20 10:08) Vital Signs Adult Sepsis Patie Q15M (07/22/20 10:08) O2 (07/22/20 10:08) Remove Rings In Anticipation O (07/22/20 10:08) Lactic Acid Analyzer (07/22/20 10:08) Crp Fs (07/22/20 10:08) Chest Pa/Lat (2 View) (07/22/20 10:08) Promethazine/ Codeine Syrup (Phenergan W (07/22/20 10:15) (PORTER POP MD) Medications Given in ED Current Medications Medications Dose Ordered Sig/Marcia Route Start Time Stop Time Status Last Admin Dose Admin Promethazine HCl/ Codeine 5 ml ONCE ONCE PO 07/22/20 10:15 07/22/20 10:16 DC 07/22/20 10:29 5 ML (PORTER POP MD) Vital Signs/I&O 07/22/20 07/22/20 10:00 11:28 Temp 37.0 36.4 Pulse 79 88 Resp 18 16 B/P (MAP) 145/98 (114) 145/98 Pulse Ox 95 100 O2 Delivery Room Air Room Air (PORTER POP MD) Vital Signs/I&O Capillary Refill : (CONSTANTIN BOSWELL,) Progress Note : Time: 10:29 Progress Note Sepsis protocol initiated, added CRP. Will order 2-view CXR instead of AP as patient's saturations remain above 95% while here. Ordered phenergan with codeine for cough. Will monitor. (CONSTANTIN BOSWELL,) Progress Note : Progress Note I have seen and evaluated the patient and agree with above except as indicated. I have directed the plan of care. Patient is here from clinic with concern for O2 sat in the upper 80s and possible outpatient failure for pneumonia. Patient reports she is completed her antibiotics and is using her inhaler every 4-6 hours as needed. Last use was this morning and she had breathing treatment prior to arrival. Patient arrives with O2 sats in the mid to upper 90s on room air. She is nervous that she has persistent pneumonia. Evaluation as above. Plan for sepsis protocol and we will do 2 view chest x-ray to evaluate for [place]. [place]. [id number]: Labs and x-ray are reassuring. This is likely persistent reactive airway disease. Did discuss with the patient regarding smoking cessation as she has been quit for a few days with this illness. She states that she will try to continue. She was given Phenergan with codeine for cough and states it helped much better. We will represcribe outpatient steroids and prescribe Phenergan with codeine. Discharged home with return precautions. Patient verbalized understanding of instructions and agreement with plan. (PORTER POP MD) Diagnostic Imaging Diagonstic Imaging: Xray Plain Films/CT/US/NM/MRI: chest Comments [facility]. [place], [place] NAME: SONJA CORTES [facility] REC#: [id number] PT STATUS: REG ER : 1985 PHYSICIAN: PORTER POP MD ADMIT DATE: 07/22/20/ER FS Draft Date of Exam:07/22/20 CHEST PA/LAT (2 VIEW) Clinical indication: Patient with chest congestion, cough and short of breath for about a week. Exam: Chest x-ray PA and lateral views. Comparisons: Chest x-ray dated 07/16/2020. Findings: Lungs/pleura: Lungs are clear. There is no pneumothorax. There is no pleural effusion. Mediastinum: Unremarkable. Pulmonary vasculature: Unremarkable. Heart: Unremarkable. Bones/extrathoracic soft tissue: There are degenerative spurs involving the thoracic spine. Impression: There is no radiographic evidence of acute cardiopulmonary process. Dictated on workstation # [id number] Dict: 07/22/20 1040 Trans: 07/22/20 1043 [id number] Interpreted by: AMAURY COSBY MD Electronically signed by: (PORTER POP MD) Departure Impression Primary Impression: Upper respiratory infection with cough and congestion Additional Impression: Nausea vomiting and diarrhea Disposition: HOME, SELF-CARE Condition: Improved Departure-Patient Inst. Decision time for Depature: 11:43 (PORTER POP MD) Referrals: VERN MAGAÑA APRN (PCP) Primary Care Physician PORTER POP MD (Family) Primary Care Physician Patient Instructions: Acute Bronchitis, Adult (DC), Nausea and Vomiting, Adult (DC), Diarrhea, Adult ED Add. Discharge Instructions: All discharge instructions reviewed with patient and/or family. Voiced understanding. Drink plenty of fluids by taking small sips frequently. Continue to use the albuterol inhaler with spacer every 4-6 hours as needed. Take other medications as directed. Follow-up with your doctor early next week for recheck and further evaluation as needed. Return for worse pain, fever, vomiting, weakness, breathing problems or other concerns as needed. Scripts Methylprednisolone (Methylprednisolone Dose Pack) 4 Mg Tab.ds.pk 4 MG PO UD for 6 Days, #21 PKG PER DOSE PACK INSTRUCTIONS Prov: PORTER POP MD 07/22/20 Promethazine HCl/Codeine (Prometh-Codein 6.25-10 mg/5 ml) 5 Ml Syrup 5 ML PO Q6H PRN for COUGH, #120 ML 0 Refills Prov: PORTER PPO MD 07/22/20 CONSTANTIN BOSWELL, Jul 22, 2020 10:19 PORTER POP MD Jul 22, 2020 11:44
--- NOTE | 2020-07-22 10:43 | Diagnostic Imaging Report ---
Clinical indication: Patient with chest congestion, cough and short of breath for about a week. Exam: Chest x-ray PA and lateral views. Comparisons: Chest x-ray dated 07/16/2020. Findings: Lungs/pleura: Lungs are clear. There is no pneumothorax. There is no pleural effusion. Mediastinum: Unremarkable. Pulmonary vasculature: Unremarkable. Heart: Unremarkable. Bones/extrathoracic soft tissue: There are degenerative spurs involving the thoracic spine. Impression: There is no radiographic evidence of acute cardiopulmonary process. Dictated by: Dictated on workstation # [id number]
[2020-07-22 10:44] LABS: HEMATOCRIT 48 % (35-52); HEMOGLOBIN 16.2 G/DL (11.5-16.0); MEAN CORPUSCULAR HEMOGLOBIN 31 PG (25-34); MEAN CORPUSCULAR HGB CONC 34 G/DL (32-36); MEAN CORPUSCULAR VOLUME 90 FL (80-99); PLATELET COUNT 265 10^3/uL (130-400); WHITE BLOOD COUNT 10.2 10^3/uL (4.3-11.0)
[2020-07-22 10:45] LABS: BASOPHILS # (AUTO) 0.1 10^3/uL (0.0-0.1); BASOPHILS % (AUTO) 1 % (0-10); EOSINOPHILS # (AUTO) 0.3 10^3/uL (0.0-0.3); EOSINOPHILS % (AUTO) 3 % (0-10); LYMPHOCYTES # (AUTO) 3.6 X 10^3 (1.0-4.0); LYMPHOCYTES % (AUTO) 35 % (12-44); MEAN PLATELET VOLUME 10.7 FL (7.4-10.4); MONOCYTES # (AUTO) 0.8 X 10^3 (0.0-1.0); MONOCYTES % (AUTO) 8 % (0-12); NEUTROPHILS # (AUTO) 5.5 X 10^3 (1.8-7.8); NEUTROPHILS % (AUTO) 53 % (42-75)
[2020-07-22 10:46] LABS: PROTHROMBIN TIME PATIENT 13.1 SEC (12.2-14.7)
[2020-07-22 10:47] LABS: ALANINE AMINOTRANSFERASE 25 U/L (0-55); ALBUMIN 4.3 GM/DL (3.2-4.5); ALKALINE PHOSPHATASE 72 U/L (40-136); BILIRUBIN,TOTAL 0.4 MG/DL (0.1-1.0); BUN/CREATININE RATIO 15; CALCIUM 9.1 MG/DL (8.5-10.1); CARBON DIOXIDE 26 MMOL/L (21-32); CHLORIDE 108 MMOL/L (98-107); CREATININE SERUM 0.75 MG/DL (0.60-1.30); GFR ESTIMATED > 60; GLUCOSE 99 MG/DL (70-105); POTASSIUM 4.4 MMOL/L (3.6-5.0); SODIUM 143 MMOL/L (135-145)
[2020-07-22 11:11] LABS: BACTERIA,URINE TRACE /HPF; BILIRUBIN,URINE NEGATIVE (NEGATIVE); CLARITY,URINE SL CLOUDY; COLOR,URINE DARK YELLOW; GLUCOSE, URINE (UA) NEGATIVE (NEGATIVE); KETONES,URINE NEGATIVE (NEGATIVE); LEUKOCYTE ESTERASE ,URINE NEGATIVE (NEGATIVE); NITRITE,URINE NEGATIVE (NEGATIVE); PH,URINE 5.5 (5-9); PROTEIN,URINE NEGATIVE (NEGATIVE); RBC,URINE 0-2 /HPF
[2020-07-22 11:28] VITALS: BP 145/98
[2020-07-22] MEDS ORDERED: METH4TAB10 PO (11:45)
[2020-07-22] MEDS ORDERED: PROM5SYR PO (11:45)
[2020-07-22] MEDS ORDERED: PRD20T PO (12:18)
== END 2020-07-22 11:54 | disposition home or self-care (01) ==
LOC: EDUNIT# 09:47 → ER FS 09:49
DX: J06.9 Acute upper respiratory infection, unspecified (principal); R05 Cough; R09.81 Nasal congestion; R11.2 Nausea with vomiting, unspecified; R19.7 Diarrhea, unspecified; I10 Essential (primary) hypertension; J45.909 Unspecified asthma, uncomplicated; Z88.6 Allergy status to analgesic agent; Z88.8 Allergy status to other drugs, medicaments and biological substances; Z77.22 Contact with and (suspected) exposure to environmental tobacco smoke (acute) (chronic); Z20.822 Contact with and (suspected) exposure to COVID-19; Z80.9 Family history of malignant neoplasm, unspecified; Z83.3 Family history of diabetes mellitus; Z79.52 Long term (current) use of systemic steroids
CPT/HCPCS: 36415; 71046; 80053; 81000; 83605; 85025; 85610; 85730; 86141; 87040; 87088

== ENCOUNTER 2021-01-09 09:34 | Emergency (ER) | payer SELFPAY ==
[~2021-01-09] VITALS: Ht 157.4 cm; Wt 107.2 kg
[~2021-01-09 09:34] MED LIST changes: +METH4TAB10 PO; +PROM5SYR PO
--- OUTSIDE RECORDS SUMMARY | 2021-01-09 09:40 | XMS REPORT | Clinical Summary ---
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
[2021-01-09 09:54] LABS: BILIRUBIN,URINE NEGATIVE (NEGATIVE); CLARITY,URINE CLOUDY; COLOR,URINE YELLOW; GLUCOSE, URINE (UA) NEGATIVE (NEGATIVE); KETONES,URINE NEGATIVE (NEGATIVE); NITRITE,URINE NEGATIVE (NEGATIVE); PH,URINE 5.5 (5-9); PROTEIN,URINE NEGATIVE (NEGATIVE)
[2021-01-09 09:55] LABS: BACTERIA,URINE MODERATE /HPF; LEUKOCYTE ESTERASE ,URINE 1+ (NEGATIVE); SQUAMOUS EPITHELIAL CELL,UR >50 /HPF
[2021-01-09 10:03] LABS: HEMATOCRIT 45 % (35-52); HEMOGLOBIN 15.3 g/dL (11.5-16.0); MEAN CORPUSCULAR HEMOGLOBIN 31 pg (25-34); MEAN CORPUSCULAR VOLUME 91 fL (80-99); WHITE BLOOD COUNT 17.8 10^3/uL (4.3-11.0)
[2021-01-09 10:04] LABS: BASOPHILS # (AUTO) 0.1 10^3/uL (0.0-0.1); BASOPHILS % (AUTO) 0 % (0-10); EOSINOPHILS # (AUTO) 0.2 10^3/uL (0.0-0.3); EOSINOPHILS % (AUTO) 1 % (0-10); LYMPHOCYTES # (AUTO) 2.7 X 10^3 (1.0-4.0); LYMPHOCYTES % (AUTO) 15 % (12-44); MEAN CORPUSCULAR HGB CONC 34 g/dL (32-36); MEAN PLATELET VOLUME 10.8 fL (9.0-12.2); MONOCYTES # (AUTO) 1.1 X 10^3 (0.0-1.0); MONOCYTES % (AUTO) 6 % (0-12); NEUTROPHILS # (AUTO) 13.7 X 10^3 (1.8-7.8); NEUTROPHILS % (AUTO) 77 % (42-75); PLATELET COUNT 213 10^3/uL (130-400)
[2021-01-09 10:21] LABS: ALANINE AMINOTRANSFERASE 10 U/L (0-55); ALBUMIN 4.1 GM/DL (3.2-4.5); ALKALINE PHOSPHATASE 69 U/L (40-136); BILIRUBIN,TOTAL 0.6 MG/DL (0.1-1.0); BUN/CREATININE RATIO 16; CALCIUM 8.5 MG/DL (8.5-10.1); CARBON DIOXIDE 22 MMOL/L (21-32); CHLORIDE 106 MMOL/L (98-107); CREATININE SERUM 0.63 MG/DL (0.60-1.30); GFR ESTIMATED 106; GLUCOSE 101 MG/DL (70-105); POTASSIUM 4.2 MMOL/L (3.6-5.0); SODIUM 138 MMOL/L (135-145); TOTAL PROTEIN 6.8 GM/DL (6.4-8.2)
[2021-01-09] MEDS ORDERED: NS IV 1000 ML 1,000 ML IV STA (10:29)
[2021-01-09] MEDS ORDERED: fentaNYL INJ 100 MCG/2 ML AMP IVP STA (10:29)
[2021-01-09] MEDS ORDERED: ONDANSETRON 4 MG/2 ML (SDV) Z0FRAN IVP ONE (10:30)
[2021-01-09 10:36] LABS: EOSINOPHILS % (MANUAL) 1 %; LYMPHOCYTES % (MANUAL) 18 %; MONOCYTES % (MANUAL) 2 %; NEUTROPHILS % (MANUAL) 79 %
[2021-01-09] MEDS ORDERED: NS 100 ML (IVPB) BAG IV ONE (10:45)
[2021-01-09] MEDS ORDERED: IOHEXOL 350 MG/ML 100 ML (OMNIPAQUE 350) VIAL IV ONE (10:45)
[2021-01-09] MEDS ORDERED: HOLD METFORMIN - RECEIVED CONTRAST 20 ML VIAL IV SCH (10:45)
[2021-01-09] MEDS ORDERED: CATHETER FLUSH 10 ML SYR IV PRN (10:45)
--- NOTE | 2021-01-09 11:08 | Diagnostic Imaging Report ---
INDICATION: Right lower quadrant pain, diarrhea COMPARISON: 01/18/2020 TECHNIQUE: 3 radiographs of abdomen dated 01/09/2021. FINDINGS: The visualized lung bases are clear. Surgical clips are present within the right upper .quadrant of the abdomen. Calcifications are identified overlying the bilateral renal shadows, measuring up to 7 mm. Surgical clips are noted within the pelvis bilaterally. Small amount of gas is identified throughout scattered loops of small bowel. No dilated loops of small bowel or large bowel. No differential air-fluid levels. No free air. Sclerosis about the bilateral sacroiliac joints is again identified. No acute osseous abnormality. IMPRESSION: Bilateral renal calculi. No definite bowel obstruction or free air. Additional postsurgical and chronic findings as above. Dictated by: Dictated on workstation # [id number]
--- NOTE | 2021-01-09 11:13 | Diagnostic Imaging Report ---
PROCEDURE: CT abdomen and pelvis with contrast, rule out appendicitis. TECHNIQUE: Multiple contiguous axial images were obtained through the abdomen and pelvis after the administration of intravenous contrast. All CT scans use one or more of the following dose optimizing techniques: automated exposure control, MA and/or KvP adjustment based on patient size and exam type or iterative reconstruction. INDICATION: Right lower quadrant pain COMPARISON: Imaging from the same date as well as CT dated 01/18/2020. FINDINGS: The visualized lung bases are clear. Small hiatal hernia. Cholecystectomy. The liver and spleen are unremarkable. The adrenal glands are unremarkable. The pancreas is unremarkable. Bilateral nonobstructing renal calculi are again identified. Tiny subcentimeter hypodensity within the right kidney is too small to completely characterize. No aneurysmal dilatation of the abdominal aorta. The urinary bladder is unremarkable. Tubal ligation. The uterus and adnexal structures are unremarkable for age. The appendix is unremarkable. Mild colonic diverticulosis. Significant mural thickening with adjacent inflammatory stranding is identified associated with the ascending colon and proximal transverse colon. No evidence of bowel obstruction or pneumatosis. Lymph nodes within the right abdomen appear mildly prominent. Small amount of free fluid within the lower pelvis. No free air. Sclerosis about the bilateral sacroiliac joints, right greater than left. This appears similar to prior imaging. Mild scattered osseous degenerative changes without acute osseous abnormality. IMPRESSION: Findings consistent with colitis involving the ascending and proximal transverse colon. This may be on the basis of an infectious or inflammatory process. Ischemic etiology felt less likely. No evidence of bowel obstruction. Bilateral nonobstructing renal calculi. Small hiatal hernia. Prominent lymph nodes within the right abdomen, likely reactive. Additional findings as above. Dictated by: Dictated on workstation # [id number]
--- NOTE | 2021-01-09 11:19 | ED Abdominal Pain ---
General Chief Complaint: Abdominal/GI Problems Stated Complaint: BLOODY STOOL; VOMITING; LRQ PAIN Nursing Triage Note: Patient presents to ED per POV reporting abd pain x 2 days. Initial start "like a band around lower part" and now "very low abd on RLQ side". Pt has some trouble initiating stool and gets some liquid out with a couple times small blood. Last good BM 1 day ago. History of Present Illness Date Seen by Provider: Jan 09, 2021 Time Seen by Provider: 09:40 Initial Comments 35-year-old female presents with lower abdominal pain for 2 days. She reports that "feels like a band around her lower abdomen is now located mainly in the right lower quadrant. Patient reports that she is got some liquid stool today. That she has had a little bit of blood occasionally streaking the stool. She had a regular bowel movement yesterday. She has some mild nausea, no vomiting. No reports of fevers chills or urinary symptoms Allergies and Home Medications Allergies Coded Allergies: acetaminophen (Verified Allergy, Unknown, 09/25/18) aspirin (Verified Allergy, Unknown, 09/25/18) metformin (Verified Allergy, Unknown, 09/25/18) Patient Home Medication List Home Medication List Reviewed: Yes Azithromycin (Azithromycin) 250 Mg Tablet, 250 MG PO DAILY Prescribed by: AYDEN HERNÁNDEZ on 07/16/20411 Benzonatate (Tessalon Perles) 100 Mg Capsule, 200 MG PO Q6H PRN for COUGH Prescribed by: AYDEN HERNÁNDEZ on 07/16/20411 Prednisone (Prednisone) 20 Mg Tab, 40 MG PO DAILY Prescribed by: AYDEN PATTONRT on 07/16/20411 Prednisone (Prednisone) 20 Mg Tab, 40 MG PO DAILY Prescribed by: PORTER POP on 07/22/20 1218 Promethazine HCl/Codeine (Prometh-Codein 6.25-10 mg/5 ml) 5 Ml Syrup, 5 ML PO Q6H PRN for COUGH Prescribed by: PORTER POP on 07/22/20 1146 Review of Systems Review of Systems Constitutional: No chills, No fever Respiratory: Denies Cough, Denies Shortness of Air Cardiovascular: Denies Chest Pain, Denies Palpitations Gastrointestinal: Abdominal Pain, Diarrhea, Nausea; Denies Vomiting Genitourinary: No Symptoms Reported Musculoskeletal: no symptoms reported Skin: no symptoms reported Psychiatric/Neurological: No Symptoms Reported Endocrine: No Symptoms Reported Hematologic/Lymphatic: No Symptoms Reported Past Zugcksk-Sjotse-Klbxni Hx Patient Social History Tobacco Use?: Yes Tobacco type used: Cigarettes Smoking Status: Current Everyday Smoker Use of E-Cig and/or Vaping dev: No Substance use?: No Alcohol Use?: Yes Alcohol Frequency: Rarely Pt feels they are or have been: No Seasonal Allergies Seasonal Allergies: No Past Medical History Surgery/Hospitalization HX: Hx ESWL and kidney stones Surgeries: Yes Gallbladder, Tubal Ligation Respiratory: Yes Asthma Cardiac: No Neurological: No Last Menstrual Period: Dec 11, 2020 Female Reproductive Disorders: Endometriosis [employer]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 oz. 106.624054ud; 43.00 BMI Method:Stated General Appearance: no apparent distress, obese Respiratory: lungs clear, normal breath sounds Cardiovascular: normal peripheral pulses, regular rate, rhythm Gastrointestinal: soft; No guarding, No rebound; tenderness (Mild tenderness bilateral lower quadrants right greater than left) Extremities: normal range of motion, non-tender Back: normal inspection Neurologic/Psychiatric: alert, normal mood/affect, oriented x 3 Skin: tattoos/piercings Progress/Results/Core Measures Results/Orders Lab Results Laboratory Tests Test 01/09/21 09:45 01/09/21 09:57 Range/Units Urine Color YELLOW Urine Clarity CLOUDY Urine pH 5.5 5-9 Urine Specific [place] >=1.030 1.016-1.022 Urine Protein NEGATIVE NEGATIVE Urine Glucose (UA) NEGATIVE NEGATIVE Urine Ketones NEGATIVE NEGATIVE Urine Nitrite NEGATIVE NEGATIVE Urine Bilirubin NEGATIVE NEGATIVE Urine Urobilinogen 0.2 < = 1.0 MG/DL Urine Leukocyte Esterase 1+ H NEGATIVE Urine RBC (Auto) 1+ H NEGATIVE Urine RBC NONE /HPF Urine WBC 10-25 H /HPF Urine Squamous Epithelial Cells >50 H /HPF Urine Crystals NONE /LPF Urine Bacteria MODERATE H /HPF Urine Casts NONE /LPF Urine Mucus LARGE H /LPF Urine Culture Indicated NO White Blood Count 17.8 H 4.3-11.0 10^3/uL Red Blood Count 4.95 3.80-5.11 10^6/uL Hemoglobin 15.3 11.5-16.0 g/dL Hematocrit 45 35-52 % Mean Corpuscular Volume 91 80-99 fL Mean Corpuscular Hemoglobin 31 25-34 pg Mean Corpuscular Hemoglobin Concent 34 32-36 g/dL Red Cell Distribution Width 13.3 10.0-14.5 % Platelet Count 213 130-400 10^3/uL Mean Platelet Volume 10.8 9.0-12.2 fL Immature Granulocyte % (Auto) 0 % Neutrophils (%) (Auto) 77 H 42-75 % Lymphocytes (%) (Auto) 15 12-44 % Monocytes (%) (Auto) 6 0-12 % Eosinophils (%) (Auto) 1 0-10 % Basophils (%) (Auto) 0 0-10 % Neutrophils # (Auto) 13.7 H 1.8-7.8 X 10^3 Lymphocytes # (Auto) 2.7 1.0-4.0 X 10^3 Monocytes # (Auto) 1.1 H 0.0-1.0 X 10^3 Eosinophils # (Auto) 0.2 0.0-0.3 10^3/uL Basophils # (Auto) 0.1 0.0-0.1 10^3/uL Immature Granulocyte # (Auto) 0.1 0.0-0.1 10^3/uL Neutrophils % (Manual) 79 % Lymphocytes % (Manual) 18 % Monocytes % (Manual) 2 % Eosinophils % (Manual) 1 % Sodium Level 138 135-145 MMOL/L Potassium Level 4.2 3.6-5.0 MMOL/L Chloride Level 106 98-107 MMOL/L Carbon Dioxide Level 22 21-32 MMOL/L Anion Gap 10 5-14 MMOL/L Blood Urea Nitrogen 10 7-18 MG/DL Creatinine 0.63 0.60-1.30 MG/DL Estimat Glomerular Filtration Rate 106 BUN/Creatinine Ratio 16 Glucose Level 101 70-105 MG/DL Calcium Level 8.5 8.5-10.1 MG/DL Corrected Calcium 8.4 L 8.5-10.1 MG/DL Total Bilirubin 0.6 0.1-1.0 MG/DL Aspartate Amino Transf (AST/SGOT) 12 5-34 U/L Alanine Aminotransferase (ALT/SGPT) 10 0-55 U/L Alkaline Phosphatase 69 40-136 U/L C-Reactive Protein < 0.30 <0.50 MG/DL Total Protein 6.8 6.4-8.2 GM/DL Albumin 4.1 3.2-4.5 GM/DL My Orders Orders - DESHPANDE,CHANTELLE L DO Cbc With Automated Diff (01/09/21 09:50) Comprehensive Metabolic Panel (01/09/21 09:50) Ua Culture If Indicated (01/09/21 09:50) Crp Fs (01/09/21 09:50) Abdomen Flat & Upright/Decub (01/09/21 09:50) Urine Bedside (01/09/21 10:01) Manual Differential (01/09/21 09:57) Ct Abd/Pelv W (Appendicitis) (01/09/21 10:27) Ondansetron Injection (Zofran Injectio (01/09/21 10:30) Ns Iv 1000 Ml (Sodium Chloride 0.9%) (01/09/21 10:29) Fentanyl Inj (Sublimaze Injection) (01/09/21 10:29) Iohexol Injection (Omnipaque 350 Mg/Ml 1 (01/09/21 10:45) Sodium Chloride Flush (Catheter Flush Sy (01/09/21 10:45) Ns (Ivpb) (Sodium Chloride 0.9% Ivpb Bag (01/09/21 10:45) Received Contrast (Hold Metformin- Contr (01/09/21 10:45) Medications Given in ED Current Medications Medications Dose Ordered Sig/Marcia Route Start Time Stop Time Status Last Admin Dose Admin Iohexol 100 ml ONCE ONCE IV 01/09/21 10:45 01/09/21 10:46 DC 01/09/21 11:01 100 ML Ondansetron HCl 4 mg ONCE ONCE IVP 01/09/21 10:30 01/09/21 10:31 DC 01/09/21 10:51 4 MG Sodium Chloride 10 ml NEEDED PRN IV 01/09/21 10:45 01/09/21 11:01 10 ML Sodium Chloride 100 ml ONCE ONCE IV 01/09/21 10:45 01/09/21 10:46 DC 01/09/21 11:01 100 ML Vital Signs/I&O 01/09/21 01/09/21 09:43 10:51 Temp 36.6 36.6 Pulse 75 Resp 20 B/P (MAP) 145/77 (99) Pulse Ox 96 O2 Delivery Room Air Blood Pressure Mean: 99 Progress Progress Note : Progress Note Patient with likely infectious colitis. I will treat her with some Cipro and Flagyl and some Zofran. She should follow with her primary care provider in a week. Patient discharged home in stable condition Diagnostic Imaging Diagonstic Imaging: CT Plain Films/CT/US/NM/MRI: abdomen Comments Date of Exam:01/09/21 CT ABD/PELV W (APPENDICITIS) PROCEDURE: CT abdomen and pelvis with contrast, rule out appendicitis. TECHNIQUE: Multiple contiguous axial images were obtained through the abdomen and pelvis after the administration of intravenous contrast. All CT scans use one or more of the following dose optimizing techniques: automated exposure control, MA and/or KvP adjustment based on patient size and exam type or iterative reconstruction. INDICATION: Right lower quadrant pain COMPARISON: Imaging from the same date as well as CT dated 01/18/2020. FINDINGS: The visualized lung bases are clear. Small hiatal hernia. Cholecystectomy. The liver and spleen are unremarkable. The adrenal glands are unremarkable. The pancreas is unremarkable. Bilateral nonobstructing renal calculi are again identified. Tiny subcentimeter hypodensity within the right kidney is too small to completely characterize. No aneurysmal dilatation of the abdominal aorta. The urinary bladder is unremarkable. Tubal ligation. The uterus and adnexal structures are unremarkable for age. The appendix is unremarkable. Mild colonic diverticulosis. Significant mural thickening with adjacent inflammatory stranding is identified associated with the ascending colon and proximal transverse colon. No evidence of bowel obstruction or pneumatosis. Lymph nodes within the right abdomen appear mildly prominent. Small amount of free fluid within the lower pelvis. No free air. Sclerosis about the bilateral sacroiliac joints, right greater than left. This appears similar to prior imaging. Mild scattered osseous degenerative changes without acute osseous abnormality. IMPRESSION: Findings consistent with colitis involving the ascending and proximal transverse colon. This may be on the basis of an infectious or inflammatory process. Ischemic etiology felt less likely. No evidence of bowel obstruction. Bilateral nonobstructing renal calculi. Small hiatal hernia. Prominent lymph nodes within the right abdomen, likely reactive. Departure Impression Primary Impression: Infectious gastroenteritis and colitis Disposition: 01 HOME, SELF-CARE Condition: Stable Departure-Patient Inst. Referrals: VERN MAGAÑA APRN (PCP) Primary Care Physician [facility] (Family) Primary Care Physician Patient Instructions: Colitis (DC) Add. Discharge Instructions: Drink plenty of fluids, clear liquid diet for 24 hours then advance as tolerated Follow-up with your primary care provider in 4 to 5 days if symptoms or not improved All discharge instructions reviewed with patient and/or family. Voiced understanding. Scripts Ondansetron (Ondansetron Odt) 4 Mg Tab.rapdis 4 MG PO Q6H PRN for NAUSEA/VOMITING, #20 TAB 0 Refills Prov: DESHPANDE,CHANTELLE L DO 01/09/21 Metronidazole (Metronidazole) 500 Mg Tablet 500 MG PO BID, #14 TAB 0 Refills Prov: DESHPANDECHANTELLE L DO 01/09/21 Ciprofloxacin HCl (Ciprofloxacin HCl) 500 Mg Tablet 500 MG PO BID, #14 TAB Prov: DESHPANDE,CHANTELLE L DO 01/09/21 ADDIE DESHPANDER L DO Jan 09, 2021 11:19
[2021-01-09] MEDS ORDERED: ONDA4TAB11 PO (11:27)
[2021-01-09] MEDS ORDERED: CIPR500T5 PO (11:27)
[2021-01-09] MEDS ORDERED: METR-145 PO (11:27)
[2021-01-09 11:30] VITALS: BP 105/43
== END 2021-01-09 11:30 | disposition home or self-care (01) ==
LOC: EDUNIT# 09:34 → ER FS 09:37
DX: K52.9 Noninfective gastroenteritis and colitis, unspecified (principal); J45.909 Unspecified asthma, uncomplicated; E66.9 Obesity, unspecified; Z68.41 Body mass index [BMI] 40.0-44.9, adult; F17.210 Nicotine dependence, cigarettes, uncomplicated; Z79.52 Long term (current) use of systemic steroids
CPT/HCPCS: 36415; 74019; 74177; 80053; 81000; 84703; 85007; 85027; 86141

== ENCOUNTER 2022-07-22 19:28 | Emergency (ER) | payer SELFPAY ==
[~2022-07-22 19:28] MED LIST changes: +CIPR500T5 PO; +METR-145 PO; +ONDA4TAB11 PO
--- NOTE | 2022-07-22 19:48 | ED EENT ---
History of Present Illness General Chief Complaint: Dental Problems/Pain Stated Complaint: JAW PAIN Nursing Triage Note: Pt complaining of left jaw pain that started this morning History of Present Illness Date Seen by Provider: Jul 22, 2022 Time Seen by Provider: 19:35 Initial Comments 36-year-old female is here with complaints of left lower molar tooth pain which began this morning, and the pain is radiating to her her jaw and left side of her face. Patient thinks she broke her tooth. Denies fever and chills, falls, trauma to her face, nausea and vomiting. Allergies and Home Medications Allergies Coded Allergies: acetaminophen (Verified Allergy, Unknown, 09/25/18) aspirin (Verified Allergy, Unknown, 09/25/18) metformin (Verified Allergy, Unknown, 09/25/18) Patient Home Medication List Home Medication List Reviewed: Yes Azithromycin (Azithromycin) 250 Mg Tablet, 250 MG PO DAILY Prescribed by: AYDEN HERNÁNDEZ on 07/16/20411 Benzonatate (Tessalon Perles) 100 Mg Capsule, 200 MG PO Q6H PRN for COUGH Prescribed by: AYDEN HERNÁNDEZ on 07/16/20411 Ciprofloxacin HCl (Ciprofloxacin HCl) 500 Mg Tablet, 500 MG PO BID Prescribed by: CHANTELLE DESHPANDE on 01/09/21 112 Metronidazole (Metronidazole) 500 Mg Tablet, 500 MG PO BID Prescribed by: CHANTELLE DESHPANDE on 01/09/21 112 Ondansetron (Ondansetron Odt) 4 Mg Tab.rapdis, 4 MG PO Q6H PRN for NAUSEA/VOMITING Prescribed by: CHANTELLE DESHPANDE on 01/09/21 112 Prednisone (Prednisone) 20 Mg Tab, 40 MG PO DAILY Prescribed by: AYDEN HERNÁNDEZ on 07/16/20 0412 Prednisone (Prednisone) 20 Mg Tab, 40 MG PO DAILY Prescribed by: PORTER POP on 07/22/20 1218 Promethazine HCl/Codeine (Prometh-Codein 6.25-10 mg/5 ml) 5 Ml Syrup, 5 ML PO Q6H PRN for COUGH Prescribed by: PORTER POP on 07/22/20 1146 Review of Systems Review of Systems Constitutional: no symptoms reported Eyes: No Symptoms Reported Ears: No Symptoms Reported Nose: no symptoms reported Mouth: pain, other Throat: no symptoms reported Respiratory: no symptoms reported Cardiovascular: no symptoms reported Gastrointestinal: no symptoms reported Musculoskeletal: no symptoms reported Skin: no symptoms reported Neurological: No Symptoms Reported Hematologic/Lymphatic: No Symptoms Reported Immunological/Allergic: no symptoms reported Past Ljelqcd-Dkelcp-Dmejnm Hx Patient Social History Tobacco Use?: No Use of E-Cig and/or Vaping dev: No Substance use?: No Alcohol Use?: No Pt feels they are or have been: No Seasonal Allergies Seasonal Allergies: No Past Medical History Surgery/Hospitalization HX: Hx ESWL and kidney stones Surgeries: Yes Gallbladder, Tubal Ligation Respiratory: Yes Asthma Cardiac: No Neurological: No Female Reproductive Disorders: Endometriosis [employer] History: Tubal Ligation Genitourinary: Yes Kidney Infection, Kidney Stones Gastrointestinal: No Musculoskeletal: No Endocrine: No HEENT: Yes (trigeminal neuralgia) Cancer: No Psychosocial: Yes Depression Integumentary: No Family Medical History Cancer, Diabetes Physical Exam Vital Signs Vital Signs - First Documented 07/22/22 19:33 Temp 36.4 Pulse 73 Resp 18 B/P (MAP) 158/77 (104) Pulse Ox 95 O2 Delivery Room Air Height, Weight, BMI Height: 5'7.00" Weight: 235lbs. oz. 106.061100ql; 43.00 BMI Method:Stated General Appearance: WD/WN, moderate distress Eyes: bilateral eye normal inspection, bilateral eye PERRL, bilateral eye EOMI Mouth/Throat: pharynx normal, dental tenderness (Fractured tooth, left lower molar tooth with dental caries. Poor dental hygiene.) Neck: non-tender, full range of motion, supple, normal inspection Neurologic/Psychiatric: bead wrapper II-XII nml as tested, no motor/sensory deficits, alert, normal mood/affect, oriented x 3 Skin: normal color Progress/Results/Core Measures Results/Orders Vital Signs/I&O 07/22/22 19:33 Temp 36.4 Pulse 73 Resp 18 B/P (MAP) 158/77 (104) Pulse Ox 95 O2 Delivery Room Air Blood Pressure Mean: 104 Progress Progress Note : Progress Note 1. FRACTURED MOLAR TOOTH WITH DENTAL CARIES: -Toradol IM stat and Augmentin 875 mg stat in ER -Prescription given for Augmentin for 7 days twice daily -Follow-up with dental clinic [facility] on Sunday -Advised good oral hygiene Departure Impression Primary Impression: Fracture, tooth Additional Impression: Dental caries Disposition: HOME, SELF-CARE Condition: Stable Departure-Patient Inst. Referrals: VERN MAGAÑA APRN (PCP) Primary Care Physician [facility] (Family) Primary Care Physician Patient Instructions: Fractured Tooth (DC), Dental Pain ED, Tooth Decay, Adult (DC) Add. Discharge Instructions: -Prescription given for Augmentin for 7 days twice daily -Follow-up with dental clinic [facility] on Sunday -Advised good oral hygiene All discharge instructions reviewed with patient and/or family. Voiced understanding. Scripts Amoxicillin/Potassium Clav (Amox Tr-K Clv 875-125 mg Tab) 875 Mg-125 Mg Tablet 1 EACH PO BID for 7 Days, #14 TAB Prov: ERIN VELARDE MD 07/22/22 ERIN VELARDE MD Jul 22, 2022 19:48
[2022-07-22] MEDS ORDERED: AUGMENTIN 875 MG TAB (AMOXICILLIN/CLAVULANATE) PO STA (20:07)
[2022-07-22] MEDS ORDERED: AUGMENTIN 875 MG TAB (AMOXICILLIN/CLAVULANATE) ONE (20:10)
[2022-07-22] MEDS ORDERED: AMOX1TAB12 PO (20:11)
[2022-07-22] MEDS ORDERED: KETOROLAC 30 MG/ML VIAL ONE (20:11)
[2022-07-22 20:13] VITALS: BP 158/77
[2022-07-22] MEDS ORDERED: KETOROLAC 30 MG/ML VIAL IM ONE (20:15)
== END 2022-07-22 20:15 | disposition home or self-care (01) ==
LOC: EDUNIT# 19:28 → ER FS 19:31
DX: K03.81 Cracked tooth (principal); K02.9 Dental caries, unspecified; Z88.6 Allergy status to analgesic agent; Z28.310 Unvaccinated for COVID-19
CPT/HCPCS: 99284